=== PATIENT | male | born 1935 | race Caucasian/White ===

== ENCOUNTER 2016-10-19 12:21 | Outpatient (CLI) ==
[2016-10-19 12:56] LABS: BILIRUBIN,URINE Negative (NEGATIVE); KETONES,URINE Negative (NEGATIVE); LEUKOCYTE ESTERASE ,URINE Negative (NEGATIVE); NITRITE,URINE Negative (NEGATIVE); PROTEIN,URINE 1+ (NEGATIVE); URINE, BLOOD Negative (NEGATIVE)
[2016-10-19 13:04] LABS: ADD URINE MICROSCOPIC YES
== END 2016-10-19 12:22 | disposition home or self-care (01) ==
LOC: LAB 12:21
PROVIDERS: ATTEND Internal Medicine
DX: N39.0 Urinary tract infection, site not specified (principal)
CPT/HCPCS: 81001

== ENCOUNTER 2016-10-19 14:19 | Outpatient (CLI) | END 2016-10-19 14:20 | disposition home or self-care (01) | LOC: AMBL 14:19 | PROVIDERS: ATTEND Internal Medicine | DX: R41.82 Altered mental status, unspecified (principal); Z95.0 Presence of cardiac pacemaker; G30.9 Alzheimer's disease, unspecified; F02.80 Dementia in other diseases classified elsewhere, unspecified severity, without behavioral disturbance, psychotic disturbance, mood disturbance, and anxiety ==

== ENCOUNTER 2016-11-02 16:06 | Inpatient (IN) | payer OTHER ==
[2016-11-02] MEDS ORDERED: ULTRAM PO PRN (17:08)
[2016-11-02 17:16] LABS: ABG BASE EXCESS 1 (-2.0-2.0); ABG HCO3 24.9 (22.0-26.0); ABG TCO2 26 (22.0-28.0)
[2016-11-02 17:16] LABS: BASOPHILS % (AUTO) 0.2 % (0.0-3.0); EOSINOPHILS # (AUTO) 0.1 K/ul (0.0-0.7); EOSINOPHILS % (AUTO) 2.8 % (0.0-7.0); HEMATOCRIT 41.7 % (42.0-52.0); IMMATURE GRANULOCYTE % (AUTO) 0.4 % (0.0-5.0); LYMPHOCYTES # (AUTO) 1.1 K/uL (0.60-3.4); LYMPHOCYTES % (AUTO) 21.3 (10.0-50.0); MEAN CORPUSCULAR HEMOGLOBIN 32.9 pg (27.0-31.0); MEAN CORPUSCULAR HGB CONC 33.6 (31.8-35.4); MEAN CORPUSCULAR VOLUME 97.9 fl (80.0-94.0); MONOCYTES # (AUTO) 0.6 K/uL (0.4-2.0); MONOCYTES % (AUTO) 12.7 (0-10); NEUTROPHILS # (AUTO) 3.2 K/ul (2.0-6.9); NEUTROPHILS % (AUTO) 62.6; PLATELET COUNT 176 10^3/uL (140-440); RED BLOOD COUNT 4.26 10^6/ul (4.70-6.10); WHITE BLOOD COUNT 5.03 K/ul (4.2-10.2)
[2016-11-02 17:57] LABS: ALBUMIN 4.1 g/dL (3.4-5.0); ALBUMIN/GLOBULIN RATIO 1.17; ANION GAP 14.2; BILIRUBIN,TOTAL 0.56 mg/dL (0.00-1.20); BUN/CREATININE RATIO 25.58; CALCIUM 9.9 mg/dL (8.2-10.2); CREATININE 0.86 mg/dL (0.60-1.10); POTASSIUM 4.2 mmol/L (3.5-5.1); TOTAL PROTEIN 7.6 g/dL (5.8-8.1)
[2016-11-02 18:05] VITALS: BMI 19.1
[2016-11-02] MEDS: DEXTROSE 5%-1/2NS IV SOLUTION 1,000 ML IV SCH (18:32)
[2016-11-02] MEDS: ROCEPHIN 1 GM in SODIUM CHLORIDE 50 ML IV SCH (18:37)
[2016-11-02] MEDS: FAMVIR PO SCH ×2 (18:39→21:17)
[2016-11-02] MEDS: SOLU-CORTEF 100 MG IVP SCH (19:16)
[2016-11-02] MEDS ORDERED: VITAMIN C ONE (20:59)
[2016-11-02] MEDS ORDERED: ASCORBIC ACID 250 MG PO SCH (21:00)
[2016-11-02] MEDS: DESYREL PO SCH (21:17)
[2016-11-03] MEDS: SOLU-CORTEF 100 MG IVP SCH ×5 (00:45→23:04)
[2016-11-03 05:09] LABS: HEMATOCRIT 36.3 % (42.0-52.0); HEMOGLOBIN 12.1 g/dl (14.0-18.0); IMMATURE GRANULOCYTE % (AUTO) 0.8 % (0.0-5.0); LYMPHOCYTES # (AUTO) 0.5 K/uL (0.60-3.4); LYMPHOCYTES % (AUTO) 12.7 (10.0-50.0); MEAN CORPUSCULAR HEMOGLOBIN 32.4 pg (27.0-31.0); MEAN CORPUSCULAR HGB CONC 33.3 (31.8-35.4); MEAN CORPUSCULAR VOLUME 97.1 fl (80.0-94.0); MONOCYTES # (AUTO) 0.1 K/uL (0.4-2.0); MONOCYTES % (AUTO) 2.7 (0-10); NEUTROPHILS # (AUTO) 3.1 K/ul (2.0-6.9); NEUTROPHILS % (AUTO) 83.8; PLATELET COUNT 161 10^3/uL (140-440); RED BLOOD COUNT 3.74 10^6/ul (4.70-6.10)
[2016-11-03 05:20] LABS: ALBUMIN 3.6 g/dL (3.4-5.0); ALBUMIN/GLOBULIN RATIO 1.16; ANION GAP 13.4; BILIRUBIN,TOTAL 0.44 mg/dL (0.00-1.20); BUN/CREATININE RATIO 23.25; CALCIUM 9.4 mg/dL (8.2-10.2); CREATININE 0.86 mg/dL (0.60-1.10); POTASSIUM 4.4 mmol/L (3.5-5.1); TOTAL PROTEIN 6.7 g/dL (5.8-8.1)
[2016-11-03] MEDS: DEXTROSE 5%-1/2NS IV SOLUTION 1,000 ML IV SCH ×3 (06:29→18:52)
--- NOTE | 2016-11-03 07:03 | DI ---
EXAM: Chest two views HISTORY: Cough COMPARISON: None TECHNIQUE: Two views of the chest were performed FINDINGS: There is left-sided cardiac pacer. The lungs are clear. There is no pleural effusion or pneumothorax. The heart is normal in size. The mediastinal contour is normal, noting atherosclero sis. There are advanced degenerative changes in the shoulders. There is a severe compression deform ity near the thoracolumbar junction, age indeterminate. IMPRESSION: 1. No acute cardiopulmonary process. 2. Severe compression deformity near the thoracolumbar junction, age indeterminate. Report faxed at time of dictation.
[2016-11-03] MEDS: VITAMIN C PO SCH (09:27)
[2016-11-03] MEDS: ROCEPHIN 1 GM in SODIUM CHLORIDE 50 ML IV SCH (09:27)
[2016-11-03] MEDS: FAMVIR PO SCH ×2 (09:27→20:30)
[2016-11-03] MEDS: FLOMAX PO SCH (09:28)
--- NOTE | 2016-11-03 14:18 | HP ---
DATE OF SERVICE: 11/02/16 REASON FOR HOSPITALIZATION/HISTORY OF PRESENT ILLNESS: This is a 81-year-old male who presented with right cervical area eruption times 24 hours. Right shoulder back rash, reddened confluent rash with burning - no real pain. No symptoms of CHF. The patient complains of cough, congestion times four days with yellow sputum. No appetite times two days. The patient was seen at [facility]. REVIEW OF SYSTEMS: CONSTITUTIONAL: Fatigue. No fever. HEENT: Sinus drainage and sneezing. No sore throat. RESPIRATORY: Cough. No hemoptysis. CARDIOVASCULAR: Mild shortness of breath. No atypical chest pain for coronary artery disease. No angina, CHF symptoms, palpitations. GASTROINTESTINAL: No melena or abdominal pain. No GERD. GENITOURINARY: No hematuria, no prostatism, no polyuria. CORRECTIONS NURSE: No blackout, no dizziness, no headache, no double vision. MUSCULOSKELETAL: Osteoarthritic pain. ENDOCRINE: Weight loss. SKIN: Rash present. PSYCHIATRIC: Anxious. Confused but alert. No depression, no suicidal thoughts, no homicidal thoughts. PAST MEDICAL/SURGICAL HISTORY: 1. Tonsillectomy 2. Pacemaker 09/23 3. Hip 09/23 4. Dementia 5. History of seizures from bradyarrhythmias,ended up with pacemaker SOCIAL HISTORY: The patient is . Retired. Nonsmoker. No alcohol use. No illicit drug use. FAMILY HISTORY: Father is . Mother is . One brother; two sisters. MEDICATIONS: (Home) 1. Tamsulosin (Flomax) 0.4 mg p.o. daily 2. Alprazolam (Xanax) 0.5 mg p.o. b.i.d p.r.n. 3. Tramadol 50 mg p.o. b.i.d. p.r.n. 4. Trazodone 50 mg p.o. bedtime 5. Ascorbic Acid 250 mg p.o. b.i.d. ALLERGIES: NKDA PHYSICAL EXAMINATION: V/S: Pulse 76, BP 130/64, temperature 98.2, 02 sat 97%. GENERAL APPEARANCE: Oriented to person. HEENT: Normal. Skin is dry. NECK: No JVP, no bruits. Right cervical rash, supraclavicular area rash. RESPIRATORY: Lungs have decreased breath sounds but clear. Kyphosis. CARDIOVASCULAR: S1, S2, no S3, no murmurs. No cyanosis, clubbing. No ascites. GI/ABDOMEN: No tenderness. Bowel sounds are active. EXTREMITIES: No edema, pulses +1, equal. CORRECTIONS NURSE: Deep tendon reflexes, sensory, motor and gait all normal. RECTAL/PROSTATE: Refused. ASSESSMENT: 1. Acute Bronchitis/dehydration/Herpes Zoster (right neck cervical area, upper rash) 2. Mental confusion worsening 3. Pacemaker 4. Insomnia 5. Left hip fracture 09/23 6. Anxiety 7. Alzheimer's dementia 8. BPH 9. Anemia 10. Vitamin D deficiency 11. COPD 12. Generalized osteoarthritis PLAN: 1. 1000 cc D5 1/2 NS q.12hr 2. Famvir 500 mg p.o. now and b.i.d. 3. Solu-Cortef 100 mg IV q.6hr 4. ABG 5. Oxygen 2L/cannula/min 6. Rocephin 1 gm Iv q.24hr 7. Sputum for C & S 8. CBC, CMP today and daily 9. T4, TSH today 10. Chest x-ray and EKG today 11. Continue home medications 12. Fall precautions TIME SPENT: More than 70 minutes. MTDD
[2016-11-03] MEDS: DESYREL PO SCH (20:30)
[2016-11-03] MEDS: XANAX PO PRN (20:31)
[2016-11-04] MEDS: SOLU-CORTEF 100 MG IVP SCH (05:05)
[2016-11-04 05:50] LABS: BASOPHILS % (AUTO) 0.1 % (0.0-3.0); HEMATOCRIT 34.6 % (42.0-52.0); HEMOGLOBIN 11.9 g/dl (14.0-18.0); IMMATURE GRANULOCYTE % (AUTO) 0.5 % (0.0-5.0); LYMPHOCYTES # (AUTO) 0.6 K/uL (0.60-3.4); LYMPHOCYTES % (AUTO) 6.8 (10.0-50.0); MEAN CORPUSCULAR HEMOGLOBIN 32.6 pg (27.0-31.0); MEAN CORPUSCULAR HGB CONC 34.4 (31.8-35.4); MEAN CORPUSCULAR VOLUME 94.8 fl (80.0-94.0); MONOCYTES # (AUTO) 0.4 K/uL (0.4-2.0); MONOCYTES % (AUTO) 3.7 (0-10); NEUTROPHILS # (AUTO) 8.4 K/ul (2.0-6.9); NEUTROPHILS % (AUTO) 88.9; PLATELET COUNT 167 10^3/uL (140-440); RED BLOOD COUNT 3.65 10^6/ul (4.70-6.10); WHITE BLOOD COUNT 9.46 K/ul (4.2-10.2)
[2016-11-04 06:08] LABS: ALBUMIN 3.4 g/dL (3.4-5.0); ALBUMIN/GLOBULIN RATIO 1.13; ANION GAP 10.7; BILIRUBIN,TOTAL 0.3 mg/dL (0.00-1.20); BUN/CREATININE RATIO 21.25; CREATININE 0.8 mg/dL (0.60-1.10); POTASSIUM 3.7 mmol/L (3.5-5.1); TOTAL PROTEIN 6.4 g/dL (5.8-8.1)
[2016-11-04] MEDS: DEXTROSE 5%-1/2NS IV SOLUTION 1,000 ML IV SCH (06:58)
[2016-11-04] MEDS: ROCEPHIN 1 GM in SODIUM CHLORIDE 50 ML IV SCH (09:19)
[2016-11-04] MEDS: FLOMAX PO SCH (09:19)
[2016-11-04] MEDS: FAMVIR PO SCH ×2 (09:19→20:11)
[2016-11-04] MEDS: VITAMIN C PO SCH (09:19)
[2016-11-04] MEDS: XANAX PO PRN ×2 (15:00→20:11)
[2016-11-04] MEDS: PREDNISONE PO SCH (16:52)
[2016-11-04] MEDS: DESYREL PO SCH (20:12)
[2016-11-05 07:15] LABS: BASOPHILS % (AUTO) 0.2 % (0.0-3.0); HEMATOCRIT 34.2 % (42.0-52.0); HEMOGLOBIN 11.7 g/dl (14.0-18.0); IMMATURE GRANULOCYTE % (AUTO) 0.8 % (0.0-5.0); LYMPHOCYTES # (AUTO) 1.3 K/uL (0.60-3.4); LYMPHOCYTES % (AUTO) 20.4 (10.0-50.0); MEAN CORPUSCULAR HEMOGLOBIN 32.9 pg (27.0-31.0); MEAN CORPUSCULAR HGB CONC 34.2 (31.8-35.4); MEAN CORPUSCULAR VOLUME 96.1 fl (80.0-94.0); MONOCYTES # (AUTO) 0.5 K/uL (0.4-2.0); MONOCYTES % (AUTO) 7.9 (0-10); NEUTROPHILS # (AUTO) 4.5 K/ul (2.0-6.9); NEUTROPHILS % (AUTO) 70.7; PLATELET COUNT 149 10^3/uL (140-440); RED BLOOD COUNT 3.56 10^6/ul (4.70-6.10); WHITE BLOOD COUNT 6.31 K/ul (4.2-10.2)
[2016-11-05 07:34] LABS: ALBUMIN 3.3 g/dL (3.4-5.0); ALBUMIN/GLOBULIN RATIO 1.18; ANION GAP 9.4; BILIRUBIN,TOTAL 0.32 mg/dL (0.00-1.20); BUN/CREATININE RATIO 27.39; CALCIUM 9.1 mg/dL (8.2-10.2); CREATININE 0.73 mg/dL (0.60-1.10); POTASSIUM 3.4 mmol/L (3.5-5.1); TOTAL PROTEIN 6.1 g/dL (5.8-8.1)
[2016-11-05] MEDS: FLOMAX PO SCH (09:35)
[2016-11-05] MEDS: PREDNISONE PO SCH (09:35)
[2016-11-05] MEDS: FAMVIR PO SCH (09:35)
[2016-11-05] MEDS: VITAMIN C PO SCH (09:36)
[2016-11-05] MEDS: ROCEPHIN 1 GM in SODIUM CHLORIDE 50 ML IV SCH (09:36)
[2016-11-05] MEDS: XANAX PO PRN (11:00)
--- NOTE | 2016-11-05 11:07 | PCM.PROG ---
Attending Provider: ATTENDING PROVIDER: Dr. ANGELITA RINCON DATE OF SERVICE: 11/05/16 SUBJECTIVE: This 81 year old WHITE/ M was hospitalized 11/02/16. The patient is hospitalized with acute bronchitis, dehydration and herpes zoster. His condition has improved remarkably. The patient is still confused but pleasant. Appetite is improved. Hydration status improved. The patient doesn't complain of any pain. No fever no chills. Cough is much more controlled. REVIEW OF SYSTEMS: CONSTITUTIONAL: No night sweats. No fatigue, malaise, lethargy. No fever or chills. HEENT: Eyes: No visual changes. No eye pain. No eye discharge. ENT: No runny nose. No epistaxis. No sinus pain. No odynophagia. No congestion. RESPIRATORY: Less cough, no congestion. No hemoptysis. CARDIOVASCULAR: No angina symptoms. No CHF symptoms. No atypical chest pain for CAD. No palpitations. No shortness of breath. GASTROINTESTINAL: Improved appetite. No abdominal pain. No nausea or vomiting. No diarrhea or constipation. No hematemesis. No hematochezia. GENITOURINARY: No urgency. No frequency. No dysuria. No hematuria. No obstructive symptoms. No discharge. No pain. No significant abnormal bleeding. MUSCULOSKELETAL: No musculoskeletal pain; no joint swelling. NEUROLOGICAL: Awake, alert, confused. No headache. No neck pain. No syncope. No seizures. No dizziness. PSYCHIATRIC: Not anxious. No depression. No suicidal thoughts. No homicidal thoughts. SKIN: Vesicular eruptions noted right supraclavicular and right suprascapular area. ENDOCRINE: No unexplained weight loss. No weight gain. HEMATOLOGIC/LYMPHATIC: No anemia. No purpura. No petechiae. No prolonged or excessive bleeding. No palpable lymph nodes. PHYSICAL EXAMINATION: GENERAL: The patient is awake, alert, confused lying in bed in no distress. VITAL SIGNS: Temperature 97.4 F, Pulse 66, Respiratory Rate 16, BP 126/84, Pulse Ox 98% HEENT: Head normocephalic, atraumatic. Eyes: Extraocular muscles are intact. Pupils are equal, round and reactive to light and accommodation. Ears: No lesions. Nose appeared normal. Throat: No exudate or erythema. NECK: Supple. No JVD, no carotid bruit. No lymphadenopathy or thyromegaly. LUNGS: Clear to auscultation. Percussion note normal. Chest symmetrical. HEART: S1, S2, no S3. No murmurs. No cyanosis or clubbing. No ascites. Pulses: Dorsalis pedis and posterior tibial pulses +1 to +2 both sides. ABDOMEN: Soft. Non-tender. Bowel sounds active. No CVA tenderness. No mass felt. EXTREMITIES: No edema. Full range of motion of all extremities, equal. Vesicular confluent eruptions noted right supraclavicular and right suprascapular area. No crusting yet. NEUROLOGIC: No focal deficit. Cranial nerves II through XII are grossly intact. No headache, no double vision or headache. SKIN: Not dry. Intact. Turgor-normal. As above. LYMPHATIC: No palpable lymph nodes/no lymphedema. MUSCULOSKELETAL: Normal joints with no swelling. Muscle tone is normal. LAB REVIEW: 11/05/16 06:45 11/05/16 06:45 11/05/16 06:45: WBC 6.31, RBC 3.56 L, Hgb 11.7 L, Hct 34.2 L, MCV 96.1 H, MCH 32.9 H, MCHC 34.2, RDW Coeff of Chepe 12.4, Plt Count 149, Immature Gran % (Auto) 0.8, Neut % (Auto) 70.7, Lymph % (Auto) 20.4, Chase % (Auto) 7.9, Eos % (Auto) 0.0, Baso % (Auto) 0.2, Immature Gran # (Auto) 0.1, Neut # 4.5, Lymph # 1.3, Chase # 0.5, Eos # 0.0, Baso # 0.0, Sodium 140, Potassium 3.4 L, Chloride 107, Carbon Dioxide 27, Anion Gap 9.4, BUN 20 H, Creatinine 0.73, Estimated GFR (MDRD ) 103.00, BUN/Creatinine Ratio 27.39, Glucose 90, Calcium 9.1, Total Bilirubin 0.32, AST 30, ALT 28, Alkaline Phosphatase 88, Total Protein 6.1, Albumin 3.3 L , Globulin 2.8, Albumin/Globulin Ratio 1.18 ASSESSMENT: 1. Acute bronchitis 2. Dehydration 3. Herpes Zoster, right neck, cervical area upper rash PLAN: 1. Discharge home 2. Prescription for Famvir for 7 more days 500 b.i.d. 3. Prescription for Prednisone 10 mg one daily times 3 days 4. Prescription for Keflex 500 mg b.i.d. times [address] scan of thoracic spine to evaluate compression fracture as seen on chest x-ray Plan and coordination of the patient's care discussed in the presence of Sandblast Carver and nurse. EDUCATION: The patient's daughter has been explained about the infectivity period. CONDITION: Stable SCRIBED BY: Zeb MORAN scribed while in presence of service performed by Dr. ANGELITA RINCON on 11/05/16 ([id number])
--- NOTE | 2016-11-05 13:06 | CM.DICTOOL ---
ADMISSION: 11/02/16 16:06 DISCHARGE: 11/05/16 DATE OF SERVICE: 11/05/16 FINAL DIAGNOSIS ACUTE BRONCHITIS DEHYDRATION SHINGLES ALZHEIMERS TYPE DEMENTIA (DAUGHTER DECLINES PHARMACOLOGICAL INTERVENTION) SEIZURE DISORDER (LAST SEIZURE 2014) BPH CAD AND HISTORY OF [place] ANXIETY COMPRESSION FRACTURE-THORACOLUMBAR JUNCTION PACEMAKER INSERTION LEFT HIP FRACTURE LAST VITALS Temp Pulse Resp BP Pulse Ox 97.4 F L 66 16 126/84 98 11/05/16 05:59 11/05/16 05:59 11/05/16 08:00 11/05/16 05:59 11/05/16 05:59 ACTIVE MEDICATIONS Alprazolam (Xanax) 0.5 mg PO BID PRN PRN Reason: Anxiety Last Admin: 11/04/16 20:11 Dose: 0.5 mg Ascorbic Acid (Vitamin C) 250 mg PO DAILY [facility] Last Admin: 11/04/16 09:19 Dose: 250 mg Famciclovir (Famvir) 500 mg PO BID [facility] Last Admin: 11/04/16 20:11 Dose: 500 mg Prednisone (Prednisone) 10 mg PO DAILYWM [facility] Last Admin: 11/04/16 16:52 Dose: 10 mg Tamsulosin HCl (Flomax) 0.4 mg PO DAILY [facility] Last Admin: 11/04/16 09:19 Dose: 0.4 mg Tramadol HCl (Ultram) 50 mg PO BID PRN PRN Reason: pain Trazodone HCl (Desyrel) 50 mg PO BEDTIME [facility] Last Admin: 11/04/16 20:12 Dose: 50 mg denotes medications initiated during this hospitalization that will be continued after discharge ALLERGIES dexamethasone [From Decadron] Adverse Reaction (Severe, Verified 11/02/16 16:55) stopped breathing NEW PRESCRIPTIONS: FAMVIR 500 MG, TAKE ONE TABLET BY MOUTH TWICE DAILY FOR 7 (SEVEN) DAYS PREDNISONE 10 MG, TAKE ONE TABLET BY MOUTH DAILY FOR 3 (THREE) DAYS WITH FOOD KEFLEX 500 MG, TAKE ONE TABLET BY MOUTH TWICE DAILY FOR 5 (FIVE) DAYS SMOKING: NONSMOKER DISEASE SPECIFIC EDUCATION: THE PATIENT'S DAUGHTER HAS BEEN PROVIDED TEACHING REGARDING: SHINGLES BRONCHITIS DEHYDRATION ALZHEIMERS HOME MEDICATIONS NEW PRESCRIPTIONS FOLLOW UP LAB REVIEW: 11/05/16 06:45 11/05/16 06:45 11/05/16 06:45: WBC 6.31, RBC 3.56 L, Hgb 11.7 L, Hct 34.2 L, MCV 96.1 H, MCH 32.9 H, MCHC 34.2, RDW Coeff of Chepe 12.4, Plt Count 149, Immature Gran % (Auto) 0.8, Neut % (Auto) 70.7, Lymph % (Auto) 20.4, [place] % (Auto) 7.9, Eos % (Auto) 0.0, Baso % (Auto) 0.2, Immature Gran # (Auto) 0.1, Neut # 4.5, Lymph # 1.3, [place] # 0.5, Eos # 0.0, Baso # 0.0, Sodium 140, Potassium 3.4 L, Chloride 107, Carbon Dioxide 27, Anion Gap 9.4, BUN 20 H, Creatinine 0.73, Estimated GFR (MDRD ) 103.00, BUN/Creatinine Ratio 27.39, Glucose 90, Calcium 9.1, Total Bilirubin 0.32, AST 30, ALT 28, Alkaline Phosphatase 88, Total Protein 6.1, Albumin 3.3 L , Globulin 2.8, Albumin/Globulin Ratio 1.18 PLAN: DISCHARGE HOME TODAY RETURN TO SEE DR. RINCON IN 5-7 DAYS. PLEASE PHONE THE OFFICE TO SCHEDULE YOUR APPOINTMENT ([phone]) RESUME YOUR HOME MEDICATIONS PER LIST PROVIDED BY THE NURSING STAFF NEW PRESCRIPTIONS: FAMVIR 500 MG, TAKE ONE TABLET BY MOUTH TWICE DAILY FOR 7 (SEVEN) DAYS PREDNISONE 10 MG, TAKE ONE TABLET BY MOUTH DAILY FOR 3 (THREE) DAYS WITH FOOD KEFLEX 500 MG, TAKE ONE TABLET BY MOUTH TWICE DAILY FOR 5 (FIVE) DAYS ACTIVITY: GET PLENTY OF REST AT HOME STAY WELL HYDRATED DIET: TOLERATED SUMMARY: THE PATIENT IS ALERT BUT HAS PROGRESSIVE DEMENTIA. HIS DAUGHTER HAS ELECTED TO DECLINE ANY MEDICATIONS MAY TREAT THE DISEASE. SHE IS THE PRIMARY CAREGIVER FOR MR. CORCORAN IN HER HOME. HE IS COMPLETELY DEPENDENT ON OTHERS FOR ALL ADL' S. HIS ABILITY LEVEL DEPENDS ON HIS LEVEL OF ORIENTATION. SOME DAYS HE IS ABLE TO BEAR WEIGHT AND ASSIST WITH TRANSFERS FROM BED TO CHAIR. HOWEVER ON DAYS WHEN HE IS NOT ORIENTED, HE IS COMPLETELY UNABLE TO BEAR WEIGHT AND REQUIRES COMPLETE LIFTS FOR TRANSFERS. HE IS INCONTINENT BOTH BOWEL AND BLADDER. THE PATIENT'S SKIN TURGOR IS IMPAIRED DUE TO A SHINGLES OUTBREAK. HE HAS RED RAISED RASH AND VESSICLES TO HIS RIGHT NECK, RIGHT SHOULDER AND RIGHTCHEST/MID- CHEST. OTHERWISE, MR. CORCORAN DOES NOT HAVE ANY DECUBITUS ULCERS PRESENT ON DISCHARGE. ANGELITA RINCON M.D.
--- NOTE | 2016-11-05 13:51 | CT ---
EXAM: CT scan of the thoracic spine without contrast HISTORY: Degenerative spine changes. TECHNIQUE: Imaging of the thoracic spine was performed without contrast. Sagittal and coronal urban nstructions and axial images were provided for interpretation. FINDINGS: There is severe compression deformity of the T11 vertebral body level. There is approxim ately 80% collapse of the T11 without significant retropulsion of the posterior cortex into the spin al canal. The pedicles of T11 appear intact. The articular facets of T11 are intact. The paraspin al soft tissues are normal. No definite acute fracture lines are seen. No other fractures are seen within the thoracic spine. There is mild increased thoracic kyphosis. IMPRESSION: Chronic appearing compression deformity of the T11 vertebral body. No definite acute compression fractures are seen.
[2016-11-05 14:02] VITALS: BP 144/70; TEMP 98.8
--- NOTE | 2016-11-09 10:59 | PN ---
DATE OF SERVICE: 11/03/16 SUBJECTIVE: 81-year-old white male hospitalized with bronchitis and also dehydration with vesicular eruptions with rash on the right supraclavicular area and right posterior suprascapular area. The patient has dementia. His MMSE score is 6/30. He is disoriented to place and time. REVIEW OF SYSTEMS: CONSTITUTIONAL: No night sweats. No fatigue, malaise, lethargy. No fever or chills. HEENT: Eyes: No visual changes. No eye pain. No eye discharge. ENT: No runny nose. No epistaxis. No sinus pain. No sore throat. No odynophagia. No congestion. RESPIRATORY: Mild cough, no congestion. No hemoptysis. CARDIOVASCULAR: The patient denies any chest pain. No PND, no orthopnea. No chest pain, no shoulder pain. No angina symptoms. No CHF symptoms. No palpitations. No shortness of breath. GASTROINTESTINAL: No abdominal pain. No nausea or vomiting. No diarrhea or constipation. No hematemesis. No hematochezia. GENITOURINARY: No urgency. No frequency. No dysuria. No hematuria. No obstructive symptoms. No discharge. No pain. No significant abnormal bleeding. MUSCULOSKELETAL: No musculoskeletal pain; no joint swelling. NEUROLOGICAL: No headache. No neck pain. No syncope. No seizures. No dizziness. PSYCHIATRIC: Not anxious. No depression. No suicidal thoughts. No homicidal thoughts. SKIN: Vesicular eruptions with rash on the right supraclavicular area and right posterior suprascapular area. ENDOCRINE: No unexplained weight loss. No weight gain. HEMATOLOGIC/LYMPHATIC: No anemia. No purpura. No petechiae. No prolonged or excessive bleeding. No palpable lymph nodes. PHYSICAL EXAMINATION: GENERAL: The patient is alert, confused. VITAL SIGNS: Temperature 98.4, pulse 80, respiratory rate 16, BP 128/82. Pulse ox 97%. HEENT: Head normocephalic, atraumatic. Eyes: Extraocular muscles are intact. Pupils are equal, round and reactive to light and accommodation. Ears: No lesions. Nose appeared normal. Throat: No exudate or erythema. NECK: Supple. No JVD, no carotid bruit. No lymphadenopathy or thyromegaly. LUNGS: Decreased breath sounds but clear to auscultation. Percussion note normal. Chest symmetrical. HEART: S1, S2, no S3. No murmurs. No cyanosis or clubbing. No ascites. Pulses: Dorsalis pedis and posterior tibial pulses +1 to +2 both sides. ABDOMEN: Soft. Nontender. Bowel sounds active. No CVA tenderness. No mass felt. EXTREMITIES: No edema. Full range of motion of all extremities, equal. NEUROLOGIC: No focal deficit. Cranial nerves II through XII are grossly intact. No headache, no double vision or headache. SKIN: As above. LYMPHATIC: No palpable lymph nodes/no lymphedema. MUSCULOSKELETAL: Normal joints with no swelling. Muscle tone is normal. LABS: Hemoglobin 12.1, hematocrit 36, WBC 3,700, normal differential. Creatinine 0.8, BUN 20, potassium 4.4, glucose 177. ASSESSMENT: 1. BRONCHITIS. 2. ACUTE DEHYDRATION. 3. HERPES ZOSTER. 4. DEMENTIA. 5. PACEMAKER. PLAN: 1. Continue Famvir. 2. Continue Rocephin. 3. Continue Steroids. 4. Hydration status has improved. CONDITION: Stable. Appetite has improved and the patient says he is feeling better and has no pain. TIME SPENT: More than 30 minutes. Plan and coordination of the patient's care discussed in the presence of nurse. FAY
--- NOTE | 2016-11-09 11:09 | PN ---
DATE OF SERVICE: 11/04/16 SUBJECTIVE: 81-year-old white male hospitalized with acute bronchitis, dehydration and herpes zoster. The patient's condition has improved. He is looking a lot better , smiling. Appetite is good according to him. REVIEW OF SYSTEMS: CONSTITUTIONAL: No night sweats. No fatigue, malaise, lethargy. No fever or chills. HEENT: Eyes: No visual changes. No eye pain. No eye discharge. ENT: No runny nose. No epistaxis. No sinus pain. No sore throat. No odynophagia. No congestion. RESPIRATORY: No cough, no congestion. No hemoptysis. CARDIOVASCULAR: No angina symptoms. No CHF symptoms. No atypical chest pain for CAD. No palpitations. No shortness of breath. No PND, no orthopnea. No palpitations. GASTROINTESTINAL: Appetite has improved. No abdominal pain. No nausea or vomiting. No diarrhea or constipation. No hematemesis. No hematochezia. GENITOURINARY: No urgency. No frequency. No dysuria. No hematuria. No obstructive symptoms. No discharge. No pain. No significant abnormal bleeding. MUSCULOSKELETAL: No musculoskeletal pain; no joint swelling. NEUROLOGICAL: No headache. No neck pain. No syncope. No seizures. No dizziness. PSYCHIATRIC: Not anxious. No depression. No suicidal thoughts. No homicidal thoughts. SKIN: Rash noted on right supraclavicular and right suprascapular area, vesicular type with some blistering. ENDOCRINE: No unexplained weight loss. No weight gain. HEMATOLOGIC/LYMPHATIC: No anemia. No purpura. No petechiae. No prolonged or excessive bleeding. No palpable lymph nodes. PHYSICAL EXAMINATION: GENERAL: The patient is confused, alert. VITAL SIGNS: Temperature 97.5, pulse 65, respiratory rate 16, BP 160/90. Pulse ox 97%. HEENT: Head normocephalic, atraumatic. Eyes: Extraocular muscles are intact. Pupils are equal, round and reactive to light and accommodation. Ears: No lesions. Nose appeared normal. Throat: No exudate or erythema. NECK: Supple. No JVD, no carotid bruit. No lymphadenopathy or thyromegaly. LUNGS: Decreased breath sounds but clear to auscultation. Percussion note normal. Chest symmetrical. HEART: S1, S2, no S3. No murmurs. No cyanosis or clubbing. No ascites. Pulses: Dorsalis pedis and posterior tibial pulses +1 to +2 both sides. ABDOMEN: Soft. Nontender. Bowel sounds active. No CVA tenderness. No mass felt. EXTREMITIES: Rash noted on right supraclavicular and right suprascapular area , vesicular type with some blistering. No edema. Full range of motion of all extremities, equal. NEUROLOGIC: No focal deficit. Cranial nerves II through XII are grossly intact. No headache, no double vision or headache. SKIN: As above. LYMPHATIC: No palpable lymph nodes/no lymphedema. MUSCULOSKELETAL: Normal joints with no swelling. Muscle tone is normal. LABS: Hemoglobin 11.9, hematocrit 34, WBC 8,900, normal differential. Creatinine 0.8, BUN 17, potassium 3.7. ASSESSMENT: 1. ACUTE BRONCHITIS 2. DEHYDRATION 3. DEMENTIA 4. HERPES ZOSTER PLAN: 1. Continue Famvir 2. Continue Rocephin 3. Continue steroids 4. Continue IV fluids CONDITION: Stable TIME SPENT: More than 30 minutes. Plan and coordination of the patient's care discussed in the presence of nurse. FAY
--- NOTE | 2016-11-09 13:13 | DS ---
DATE OF SERVICE: 11/05/16 FINAL DIAGNOSIS: 1. ACUTE BRONCHITIS 2. DEHYDRATION 3. SHINGLES 4. ALZHEIMER'S TYPE DEMENTIA (DAUGHTER DECLINES PHARMACOLOGICAL INTERVENTION) 5. SEIZURE DISORDER (LAST SEIZURE 2014) 6. BPH 7. CAD AND HISTORY OF [place] 8. ANXIETY 9. COMPRESSION FRACTURE-THORACOLUMBAR JUNCTION 10. PACEMAKER INSERTION 11. LEFT HIP FRACTURE DISCHARGE INSTRUCTIONS: Followup appointment with Dr. Denise in 5 to 7 days. Please phone office to schedule your appointment. MEDICATIONS AT DISCHARGE: 1. Tamsulosin (Flomax) 0.4 mg p.o. daily 2. Alprazolam (Xanax) 0.5 mg p.o. b.i.d. p.r.n. 3. Tramadol 50 mg p.o. b.i.d. p.r.n. 4. Trazodone 50 mg p.o. bedtime 5. Ascorbic Acid (Vitamin C) 250 mg p.o. b.i.d. NEW PRESCRIPTIONS: 1. Famvir 500 mg take one tablet by mouth twice daily for 7 days 2. Prednisone 10 mg one tablet by mouth daily for 3 days with food 3. Keflex 500 mg take one tablet by mouth twice daily for 5 days DIET INSTRUCTIONS: As tolerated. ACTIVITY: Get plenty of rest at home. Stay well-hydrated. SMOKING: Nonsmoker DISEASE SPECIFIC EDUCATION: The patient's daughter has been provided teaching regarding: Shingles, bronchitis, dehydration, Alzheimer's, home medications, new prescriptions and followup. HOSPITAL COURSE: 81-year-old white male hospitalized through the office with acute bronchitis, dehydration and the patient had Herpes Zoster with some symptoms for 2 to 3 days prior to hospitalization. The patient, on the day of hospitalization, was taken to ER at [facility]. He was discharged on medication for Herpes Zoster. The daughter brought the patient to the office where he was found to have bronchitis type of symptoms and deterioration of mental status with poor skin turgor. The patient was given in the hospital, Rocephin IV, IV steroids administered along with Famvir for herpes zoster. The patient did not have any pain. Herpes Zoster eruptions are in the right supraclavicular and slight suprascapular areas. He has been able to tolerate them very well. The patient was discharged on Keflex, Famvir, Prednisone tablets. The patient also has known compression fracture on thoracolumbar junction. Daughter does not want anything to be done. The patient is physically not stable at the present time or even in the future. The patient had an MMSE done. His score was 4 out of 30. The patient has severe dementia. The daughter, family and the patient have declined any treatment. CONDITION AT TIME OF DISCHARGE: Stable. TIME SPENT: More than 60 minutes. MTDD
== END 2016-11-05 15:47 | disposition home or self-care (01) | DRG 202 ==
LOC: MEDSURG B 16:06
PROVIDERS: ADMIT Internal Medicine; ATTEND Internal Medicine
DX: J20.9 Acute bronchitis, unspecified (principal); S72.002A Fracture of unspecified part of neck of left femur, initial encounter for closed fracture; S22.089A Unspecified fracture of T11-T12 vertebra, initial encounter for closed fracture; E86.0 Dehydration; B02.9 Zoster without complications; G30.9 Alzheimer's disease, unspecified; I25.10 Atherosclerotic heart disease of native coronary artery without angina pectoris; F02.80 Dementia in other diseases classified elsewhere, unspecified severity, without behavioral disturbance, psychotic disturbance, mood disturbance, and anxiety; G40.909 Epilepsy, unspecified, not intractable, without status epilepticus; N40.0 Benign prostatic hyperplasia without lower urinary tract symptoms; F41.9 Anxiety disorder, unspecified; I25.2 Old myocardial infarction; Z95.0 Presence of cardiac pacemaker; Z79.899 Other long term (current) drug therapy
CPT/HCPCS: 36415; 80053; 82607; 82803; 83036; 84436; 84443; 85025; 93005; 93010

== ENCOUNTER 2017-02-22 11:42 | Emergency (ER) ==
[2017-02-22 11:47] VITALS: BP 130/80; TEMP 97.4; BMI 18.8
--- NOTE | 2017-02-22 12:04 | ED.PDOC ---
General ED Provider: Dr. YADI EAGLE JR Chief Complaint: Rash Stated Complaint: patient has a red rash area to back of neck. patient has a hx of shingles. patient also has a red area to naval[End]SINCE [id number] 78 20 97% 130/80 shingles/enlarged prst. pacemaker SZ. family notes weak and confused past week complained of right sided weakness increased confusion strong odor to urine, open site to right of umbnilicus dry open dry sites accross upper back at neck more to right of midlin[place] patches no vesicles family states vesicle at umbilcus no vesicles seen by family on back Time Seen by Physician: 12:04 Mode of Arrival: Wheelchair Information Source: Patient, Family Exam Limitations: No limitations Primary Care Provider: ANGELITA RINCON Nursing and Triage Documentation Reviewed and Agree: No Review of Systems - Review Of Systems Constitutional: Reports: Malaise, Weakness Eyes: Reports: Decreased acuity Ears, Nose, Mouth, Throat: Reports: No symptoms Respiratory: Reports: No symptoms Cardiac: Reports: Lightheadedness GI: Reports: No symptoms : Reports: Other (FOUL ODOR) Musculoskeletal: Reports: No symptoms Skin: Reports: Lesions (TO RIGHT SIDE OF UMBILICUS AND THREE PATCHES ON BACK OR NECK EXCORIATIOSN POSSIBLY DUE TO VIRAL EXANTHEM BUT NO VISIBLE VESICLES NOT TENDER NOT ACTIVELY ITCHING- FAMILY FEELS THIS IS ZOSTER) Neurological: Reports: Cognitive dysfunction, Weakness (RIGHT SIDE RESOLVED NO CHANGE IN AMBULATION, PATIENT DOES STIFFEN LEGS, FEW SECONDS OF COGWHEEL LIKE MOTION(NOT TYPICAL)) Endocrine: Denies: Unexplained weight gain Hematologic/Lymphatic: Reports: No symptoms (ON ENSURE) All Other Systems: Other Past Medical History - Past Medical History Endocrine: Reports: None Cardiovascular: Reports: None Respiratory: Reports: None Hematological: Reports: None Gastrointestinal: Reports: None Genitourinary: Reports: None Neuro/Psych: Reports: Seizure Musculoskeletal: Reports: None Cancer: Reports: None Other Pertinent Past Medical History: shingles/enlarged prostate - Surgical History General Surgical History: Reports: Pacemaker - Family History Family History: Reports: Unknown - Social History Smoking Status: Never smoker Hx Substance Use: No Alcohol Screening: Occasionally Physical Exam - Physical Exam Appearance: Ill-appearing Ill-appearing: Mild Pain Distress: Mild Eyes: MARIA LUISA, EOMI, Conjunctiva clear ENT: Nose normal, TMs [place] Neck: Supple Respiratory: Airway patent, Breath sounds clear Cardiovascular: RRR, Pulses normal GI/: Soft, Nontender Musculoskeletal: Normal strength (UNCOOPERATIVE, FULL rom BUT UNUSIAL MOTIONS) Skin: Warm, Dry, Normal color Neurological: Sensation intact, Motor intact, Reflexes intact, Cranial nerves intact, Alert, Oriented Interpretation - Radiology Interpretation Radiology Interpretation By: Radiologist Radiology Results: Negative Exam Interpreted: CT Scan (HEAD NON ACUTE) Physician Notification - Case Discussed Physician Notified: Dr Rincon- let family know he does not meet criteria for admission Time of Notification: 14:56 Critical Care Note - Critical Care Note Total Time (mins): 0 Course - Course Hematology/Chemistry: 02/22/17 12:20 02/22/17 12:20 Orders, Labs, Meds: Lab Review 02/22/17 02/22/17 12:20 14:35 WBC 5.91 RBC 4.41 L Hgb 14.6 Hct 43.0 MCV 97.5 H MCH 33.1 H MCHC 34.0 RDW Coeff of [place] 13.0 Plt Count 180 Immature Gran % (Auto) 0.5 Neut % (Auto) 67.6 Lymph % (Auto) 20.8 [place] % (Auto) 8.6 Eos % (Auto) 2.2 Baso % (Auto) 0.3 Immature Gran # (Auto) 0.0 Neut # 4.0 Lymph # 1.2 [place] # 0.5 Eos # 0.1 Baso # 0.0 Sodium 139 Potassium 4.2 Chloride 102 Carbon Dioxide 25 Anion Gap 16.2 BUN 23 H Creatinine 0.87 Estimated GFR (MDRD) 84.00 BUN/Creatinine Ratio 26.43 Glucose 151 H Calcium 9.8 Total Bilirubin 0.58 AST 39 H ALT 33 Alkaline Phosphatase 123 H Total Protein 7.8 Albumin 4.0 Globulin 3.8 Albumin/Globulin Ratio 1.05 Amylase 92 Lipase 64 Urine Color Yellow Urine Clarity Clear Urine pH 5.5 Ur Specific [place] 1.025 Urine Protein 1+ Urine Glucose (UA) Negative Urine Ketones Negative Urine Blood Trace-lysed Urine Nitrite Negative Urine Bilirubin Negative Urine Urobilinogen 0.2 Ur Leukocyte Esterase Negative Ur Squamous Epith Cells 2-5 Urine Mucus 1+ H. pylori IgG Antibody Negative Orders Category Date Time Status Ramos [CATHETER INSERTION AND CARE] Q8HR CARE 02/22/17 13:52 Active AMYLASE Stat LAB 02/22/17 12:20 Completed CBC W/ AUTO DIFF Stat LAB 02/22/17 12:20 Completed COMPREHENSIVE METABOLIC PANEL Stat LAB 02/22/17 12:20 Completed H. PYLORI SCREEN Stat LAB 02/22/17 12:20 Completed LIPASE Stat LAB 02/22/17 12:20 Completed URINALYSIS C & S IF INDICATED Stat LAB 02/22/17 14:35 Completed Lidocaine HCl [Uro-Jet] MEDS 02/22/17 14:30 Discontinued 10 ml [id number] .STK-MED ONE CT HEAD W/O CONTRAST Stat RADS 02/22/17 12:16 Completed Vital Signs: Temp Pulse Resp BP Pulse Ox 02/22/17 11:42 97.4 F L 78 20 130/80 97 Departure - Departure Time of Disposition: 15:49 Disposition: HOME SELF-CARE Discharge Problem: Rash, Confusion state, Weakness Instructions: Acute Rash (ED), Altered Mental Status (ED) Condition: Good Pt referred to PMD for follow-up: Yes Additional Instructions: Please follow-up with Dr. Rincon in 1-3 days. may begin famvir for rash if any blistering encourage oral fluids return if fever over 101.0 one sided weakness or worsening Prescriptions: Famciclovir [Famvir] 500 mg PO BID #14 tablet Allergies/Adverse Reactions: Allergies dexamethasone [From Decadron] Adverse Reaction (Severe, Verified 02/22/17 11:54) stopped breathing stopped breathing Home Medications: Ambulatory Orders Alprazolam [Xanax] 0.5 mg PO BID PRN 11/02/16 Tamsulosin HCl [Flomax] 0.4 mg PO DAILY 11/02/16 Tramadol HCl 50 mg PO BID PRN 11/02/16 Trazodone HCl 50 mg PO BEDTIME 11/02/16 Famciclovir [Famvir] 500 mg PO BID #14 tablet 02/22/17 Ferrous Sulfate Solution [Ferrous Sulfate] 5 ml PO TID PRN 02/22/17
[2017-02-22 12:28] LABS: BASOPHILS % (AUTO) 0.3 % (0.0-3.0); EOSINOPHILS # (AUTO) 0.1 K/ul (0.0-0.7); EOSINOPHILS % (AUTO) 2.2 % (0.0-7.0); HEMOGLOBIN 14.6 g/dl (14.0-18.0); IMMATURE GRANULOCYTE % (AUTO) 0.5 % (0.0-5.0); LYMPHOCYTES # (AUTO) 1.2 K/uL (0.60-3.4); LYMPHOCYTES % (AUTO) 20.8 (10.0-50.0); MEAN CORPUSCULAR HEMOGLOBIN 33.1 pg (27.0-31.0); MEAN CORPUSCULAR VOLUME 97.5 fl (80.0-94.0); MONOCYTES # (AUTO) 0.5 K/uL (0.4-2.0); MONOCYTES % (AUTO) 8.6 (0-10); NEUTROPHILS % (AUTO) 67.6; PLATELET COUNT 180 10^3/uL (140-440); RED BLOOD COUNT 4.41 10^6/ul (4.70-6.10); WHITE BLOOD COUNT 5.91 K/ul (4.2-10.2)
[2017-02-22 12:38] LABS: H. PYLORI ANTIBODY NEGATIVE (NEGATIVE); H.PYLORI INTERNAL QC INTERNAL QC VALID
[2017-02-22 12:45] LABS: ALBUMIN/GLOBULIN RATIO 1.05; ANION GAP 16.2; BILIRUBIN,TOTAL 0.58 mg/dL (0.00-1.20); BUN/CREATININE RATIO 26.43; CALCIUM 9.8 mg/dL (8.2-10.2); CREATININE 0.87 mg/dL (0.60-1.10); POTASSIUM 4.2 mmol/L (3.5-5.1); TOTAL PROTEIN 7.8 g/dL (5.8-8.1)
--- NOTE | 2017-02-22 13:27 | CT ---
EXAM: CT head without contrast. HISTORY: Unstable gait. Right-sided weakness. Confusion. COMPARISON: 06/18/2016. TECHNIQUE: Multiple axial images of the brain were obtained from the skull base through the vertex without intravenous contrast. FINDINGS: There is no intracranial hemorrhage or extraaxial collection. The kaur-white differentia tion is maintained without evidence for acute large vascular territory infarction. There are areas of periventricular and subcortical white matter low attenuation. The cortical sulci and cerebral ve ntricles are enlarged with stable ventricular size since the prior study. The basal cisterns are we ll visualized. There is no hydrocephalus, mass effect, or midline shift. The paranasal sinuses and mastoid air cells are clear. The calvarium is intact. Atherosclerotic calcifications are present. Since the prior study, there has been no significant interval change. IMPRESSION: 1. No acute intracranial abnormality. 2. Chronic small vessel ischemic changes and atrophy. 3. Stable ventriculomegaly.
[2017-02-22] MEDS ORDERED: URO-JET MUCOUSMEMB ONE (14:30)
[2017-02-22 14:44] LABS: BILIRUBIN,URINE Negative (NEGATIVE); KETONES,URINE Negative (NEGATIVE); LEUKOCYTE ESTERASE ,URINE Negative (NEGATIVE); NITRITE,URINE Negative (NEGATIVE); PH,URINE 5.5 (5-9); PROTEIN,URINE 1+ (NEGATIVE); URINE, BLOOD Trace-lysed (NEGATIVE)
[2017-02-22 14:47] LABS: ADD URINE MICROSCOPIC YES
== END 2017-02-22 16:06 | disposition home or self-care (01) ==
LOC: ED 11:42
DX: R21 Rash and other nonspecific skin eruption (principal); R53.1 Weakness; R41.0 Disorientation, unspecified; R82.90 Unspecified abnormal findings in urine; R42 Dizziness and giddiness; Z95.0 Presence of cardiac pacemaker; Z79.899 Other long term (current) drug therapy; Z86.19 Personal history of other infectious and parasitic diseases
CPT/HCPCS: 36415; 80053; 81001; 82150; 83690; 85025; 86677; 99283

== ENCOUNTER 2017-03-26 12:51 | Outpatient (CLI) ==
[2017-03-26 13:22] LABS: BILIRUBIN,URINE Negative (NEGATIVE); KETONES,URINE Negative (NEGATIVE); LEUKOCYTE ESTERASE ,URINE Negative (NEGATIVE); NITRITE,URINE Negative (NEGATIVE); PROTEIN,URINE Negative (NEGATIVE); URINE, BLOOD 1+ (NEGATIVE)
[2017-03-26 13:25] LABS: ADD URINE MICROSCOPIC YES
== END 2017-03-26 12:52 | disposition home or self-care (01) ==
LOC: NONPT 12:51
PROVIDERS: ATTEND Emergency Medicine
DX: R35.0 Frequency of micturition (principal)
CPT/HCPCS: 81001

== ENCOUNTER 2018-04-26 10:55 | Outpatient (CLI) | END 2018-04-26 10:56 | disposition home or self-care (01) | LOC: RHC-LAB 10:55 | PROVIDERS: ATTEND Emergency Medicine | DX: G30.1 Alzheimer's disease with late onset (principal); N40.1 Benign prostatic hyperplasia with lower urinary tract symptoms; J06.9 Acute upper respiratory infection, unspecified | CPT/HCPCS: 36415; 80053; 84443; 85025 ==

== ENCOUNTER 2018-08-16 10:42 | Outpatient (CLI) | END 2018-08-16 11:01 | disposition short-term general hospital (02) | LOC: AMBL 10:42 | PROVIDERS: ATTEND Emergency Medicine | DX: M54.9 Dorsalgia, unspecified (principal); W19.XXXA Unspecified fall, initial encounter; G30.9 Alzheimer's disease, unspecified; F02.80 Dementia in other diseases classified elsewhere, unspecified severity, without behavioral disturbance, psychotic disturbance, mood disturbance, and anxiety ==

== ENCOUNTER 2019-02-05 16:03 | Outpatient (CLI) | END 2019-02-05 16:04 | disposition home or self-care (01) | LOC: RHC-LAB 16:03 | PROVIDERS: ATTEND Family Medicine | DX: G30.1 Alzheimer's disease with late onset (principal); Z86.2 Personal history of diseases of the blood and blood-forming organs and certain disorders involving the immune mechanism; Z86.39 Personal history of other endocrine, nutritional and metabolic disease | CPT/HCPCS: 36415; 80053; 82607; 85025 ==

== ENCOUNTER 2019-06-14 11:57 | Outpatient (CLI) | payer OTHER ==
[2019-06-14 15:09] VITALS: BMI 20.3
== END 2019-06-14 12:02 | disposition critical access hospital (66) ==
LOC: AMBL 11:57
PROVIDERS: ATTEND Emergency Medicine
DX: R50.9 Fever, unspecified (principal); R82.90 Unspecified abnormal findings in urine; Z87.440 Personal history of urinary (tract) infections; R41.82 Altered mental status, unspecified; F03.90 Unspecified dementia, unspecified severity, without behavioral disturbance, psychotic disturbance, mood disturbance, and anxiety; G47.33 Obstructive sleep apnea (adult) (pediatric)

== ENCOUNTER 2019-06-14 12:14 | Inpatient (IN) ==
--- NOTE | 2019-06-14 13:06 | ED.PDOC ---
General ED Provider: Dr. ALEXX ISAAC Chief Complaint: Urinary Problem Stated Complaint: Mental status changes. Daughter states her father has recently finished a course of antibiotics for UTI.,. This morning had elevated temperature 101.6. Has decreased responsiveness and acting as if he has infection. Time Seen by Physician: 12:40 Mode of Arrival: Walk-In Information Source: Patient Primary Care Provider: AYAN STOVER Referred to ED by: PCP, Other Nursing and Triage Documentation Reviewed and Agree: Yes Does patient meet sepsis criteria?: Yes If yes, has appropriate treatment been initiated?: Yes System Inflammatory Response Syndrome: Temp 101F or Greater (recorded at home this morning ) Sepsis Protocol: For patient's 13 years and over: Temp is 96.8 and below OR 101 and greater Pulse >90 BPM Resp >20/minute Acutely Altered Mental Status Are patient's symptoms suggestive of a new infection, such as: -Pneumonia -Skin, Soft Tissue -Endocarditis -UTI -Bone, Joint Infection -Implantable Device -Acute Abdominal Infection -Wound Infection -Meningitis -Blood Stream Catheter Infection -Unknown Complaint Exam - Complaint/Exam Onset/Duration: This morning Symptoms Are: Still present Timing: Constant Initial Severity: Moderate Current Severity: Moderate Location of Pain: Reports: None Aggravating: Reports: None Alleviating: Reports: None Associated Signs and Symptoms: Reports: Lethargy Related History: Reports: Similar episode Testicular Torsion Risk Factors: Reports: None Surgical Obstruction Risk Factors: Reports: None Related Surgical History: Reports: None Abdominal Findings: Present: None Differential Diagnoses: UTI Review of Systems - Review Of Systems Constitutional: Reports: No symptoms (Unable to assess -pt non verbal and minimally responsive) Eyes: Reports: No symptoms Ears, Nose, Mouth, Throat: Reports: No symptoms Respiratory: Reports: No symptoms Cardiac: Reports: No symptoms GI: Reports: No symptoms : Reports: No symptoms Musculoskeletal: Reports: No symptoms Skin: Reports: No symptoms Neurological: Reports: No symptoms Endocrine: Reports: No symptoms Hematologic/Lymphatic: Reports: No symptoms All Other Systems: Reviewed and Negative Past Medical History - Past Medical History Endocrine: Reports: None Cardiovascular: Reports: None Respiratory: Reports: None Hematological: Reports: None Gastrointestinal: Reports: None Genitourinary: Reports: None Neuro/Psych: Reports: Seizure Musculoskeletal: Reports: None Cancer: Reports: None Other Pertinent Past Medical History: shingles/enlarged prostate - Surgical History General Surgical History: Reports: Pacemaker - Family History Family History: Reports: Unknown - Social History Smoking Status: Never smoker Hx Substance Use: No Alcohol Screening: Occasionally - Immunizations Tetanus Shot up to Date: No Physical Exam - Physical Exam Appearance: Ill-appearing Ill-appearing: Moderate Pain Distress: None Eyes: MARIA LUISA, EOMI, Conjunctiva clear ENT: Ears normal, Nose normal, Oropharynx normal Neck: Supple Respiratory: Airway patent, Breath sounds clear, Breath sounds equal, Respirations nonlabored Cardiovascular: RRR, Pulses normal, No rub, No murmur GI/: Soft, Nontender, No masses, Bowel sounds normal, No Organomegaly Skin: Warm, Dry, Normal color Neurological: Motor intact, Disoriented Interpretation - Radiology Interpretation Radiology Interpretation By: ED Physician Radiology Results: No acute changes Physician Notification - Case Discussed Physician Notified: Dr Stover Time of Notification: 14:15 (agrees to admit) Critical Care Note - Critical Care Note Total Time (mins): 30 Course - Course Hematology/Chemistry: 06/14/19 13:25 06/14/19 13:25 Orders, Labs, Meds: Lab Review 06/14/19 06/14/19 06/14/19 13:25 13:25 13:25 WBC 6.18 RBC 4.46 L Hgb 14.4 Hct 45.3 MCV 101.6 H MCH 32.3 H MCHC 31.8 RDW Coeff of [place] 13.5 Plt Count 140 Immature Gran % (Auto) 0.3 Neut % (Auto) 71.6 Lymph % (Auto) 19.3 [place] % (Auto) 7.9 Eos % (Auto) 0.6 Baso % (Auto) 0.3 Immature Gran # (Auto) 0.0 Neut # (Auto) 4.4 Lymph # (Auto) 1.2 [place] # (Auto) 0.5 Eos # (Auto) 0.0 Baso # (Auto) 0.0 Sodium 145.4 H Potassium 3.91 Chloride 110.5 H Carbon Dioxide 28.4 Anion Gap 10.41 BUN 26.9 H Creatinine 1.00 Estimated GFR (MDRD) 71.00 BUN/Creatinine Ratio 26.90 Glucose 191.2 H Lactic Acid Calcium 9.23 Total Bilirubin 0.52 AST 52.0 ALT 29.2 Alkaline Phosphatase 105.0 Total Protein 7.85 Albumin 4.25 Globulin 3.60 Albumin/Globulin Ratio 1.18 Procalcitonin 0.19 Urine Color Urine Clarity Urine pH Ur Specific [place] Urine Protein Urine Glucose (UA) Urine Ketones Urine Blood Urine Nitrite Urine Bilirubin Urine Urobilinogen Ur Leukocyte Esterase Urine Microscopic WBC Ur Squamous Epith Cells Amorphous Sediment Urine Mucus 06/14/19 06/14/19 13:25 13:30 WBC RBC Hgb Hct MCV MCH MCHC RDW Coeff of [place] Plt Count Immature Gran % (Auto) Neut % (Auto) Lymph % (Auto) [place] % (Auto) Eos % (Auto) Baso % (Auto) Immature Gran # (Auto) Neut # (Auto) Lymph # (Auto) [place] # (Auto) Eos # (Auto) Baso # (Auto) Sodium Potassium Chloride Carbon Dioxide Anion Gap BUN Creatinine Estimated GFR (MDRD) BUN/Creatinine Ratio Glucose Lactic Acid 2.88 H Calcium Total Bilirubin AST ALT Alkaline Phosphatase Total Protein Albumin Globulin Albumin/Globulin Ratio Procalcitonin Urine Color Yellow Urine Clarity Clear Urine pH 5.0 Ur Specific [place] >=1.030 Urine Protein 2+ Urine Glucose (UA) Negative Urine Ketones Negative Urine Blood Negative Urine Nitrite Negative Urine Bilirubin Negative Urine Urobilinogen 0.2 Ur Leukocyte Esterase Negative Urine Microscopic WBC 0-2 Ur Squamous Epith Cells 5-10 Amorphous Sediment Trace Urine Mucus 1+ Orders Category Date Time Status ADMIT PATIENT INPATIENT .TO [facility] [place] (MONITORED BED) ADMISSION 06/14/19 14: 14 Active TELEMETRY MONITORING TELE CARE 06/14/19 14:14 Active BLOOD CULTURE (ED ONLY) Stat LAB 06/14/19 13:25 Received CBC W/ AUTO DIFF Stat LAB 06/14/19 13:25 Completed CMP [COMPREHENSIVE METABOLIC PANEL] Stat LAB 06/14/19 13:25 Completed LACTIC ACID Stat LAB 06/14/19 13:25 Completed PROCALCITONIN Stat LAB 06/14/19 13:25 Completed UA [URINALYSIS C & S IF INDICATED] Stat LAB 06/14/19 13:30 Completed Sodium Chloride 0.9% [Sodium Chloride] 1,000 ml MEDS 06/14/19 14:06 Active IV BOLUS CHEST, 1V AP ONLY Stat RADS 06/14/19 14:04 Ordered Medications Generic Name Dose Route Start Last Admin Trade Name Freq PRN Reason Stop Dose Admin Sodium Chloride 1,000 mls @ 500 mls/hr 06/14/19 14:06 Sodium Chloride IV 06/14/19 16:05 BOLUS STA Vital Signs: Temp Pulse Resp BP Pulse Ox 06/14/19 12:14 98.1 F 93 H 18 125/73 96 Departure - Departure Time of Disposition: 14:20 Disposition: ADMITTED INPATIENT Discharge Problem: Sepsis, Dementia, Dehydration, Type 2 diabetes mellitus Condition: Stable Pt referred to PMD for follow-up: Yes (Dr Stover) IPMP verified?: No Allergies/Adverse Reactions: Allergies dexamethasone [From Decadron] Adverse Reaction (Severe, Verified 06/14/19 12:18) stopped breathing stopped breathing Home Medications: Ambulatory Orders 1 [No Reported Medications] 06/14/19 Disposition Discussed With: Family, Other (Dr Romero)
[2019-06-14] MEDS ORDERED: SODIUM CHLORIDE 1,000 ML IV STA (14:06)
--- NOTE | 2019-06-14 14:32 | DI ---
EXAM: Chest one view HISTORY: Fever in mental status changes COMPARISON: 11/02/1969 TECHNIQUE: Single view of the chest was performed FINDINGS: Similar left chest pacing device. The lungs are clear. There is no pleural effusion or pn eumothorax. The heart is normal in size. The mediastinal contour is normal. There are no acute abn ormalities of the bones. Advanced degenerative changes of the right shoulder. IMPRESSION: No acute cardiopulmonary process.
[2019-06-14 15:09] VITALS: BMI 20.3
--- NOTE | 2019-06-14 16:26 | PCM ---
- Chief Complaint Chief Complaint: Altered mental status, urinary changes. Dehydration - History of Present Illness History of Present Illness: 83 yr old male presented to ED today at 12:40 with daughter noting that father recently completed course of abx for UTI. This am temp noted to be 101.6. Decreased responsiveness and acting to daughter as if infection was worsening. Vitals in ER temp 98.1, pulse 93, rr 18, bp 125/73, pulse ox 96% on RA. WBC noted to be 6.18, hgb 14.4, plt 140, MCV was elevate at 101.6 but no anemia. Chemistry showed minimally elevated sodium 145.4, cl 110.5, BUN 26.9 elevated and Cr okay at 1.0 with GFR 71. Glucose elevated at 191.2 non fasting. Lactic acid 2.88 and procalcitonin 0.19. Calcium noted at 9.23, AST 52, alt 29, albumin 4.25. Urine showed clear yellow color pH 5.0 with SG 1.030. Neg gl, ket, blood, nit, bili, urobili, micro WBC 0-2, ur squam 5-10, trace amorphous sediment and mucus. Based on presentation he did not meet SIRS/Sepsis criteria but his lactate was elevated. complain present with lethargy, suprapubic pain. Patient was non verbal in ED, minimally responsive in ED. ?H/o Seizure. History of enlarged prostate, history of shingles. Patient noted by ED to be ill appearing and no other findings on examination. CXR today negative. I talked with ED and patient had blood cultures ordered. They gave rocephin in ED. I will change this to invanz. I will get records on recent antibiotic use, I will order CT of head as well as CT of abd/pelvis with contrast. Fluids started in ED 1000ml NS 500 ml/hr bolus. I was called at 14:40 and patient seen 16:10 in room 122. Reviewed outpatient chart. Patient last OV with me was 2018. History of BPH, urinary issues, URTI, Onychomycosism b12 deficiency, alzheimers. History from daughter. Patient has alzheimers and is confused. He is DNR. Afebrile in hospital. Daughter provided all history noted she thinks he is dehydrated as he acts like this (worse) when dehydrated. Per ER nurse note patient took 7 day of abx. Disoriented x3, rigid. Per daughter he has had symptoms for past 1 week. Daughter noted that Dr. Vasquez gave him extra abx, 2 days was better, then he was running fever again. Per daughter used amoxil 500, which was an old rx from Dr. Vasquez that they had lying around. These 04/26/18 per daughter. He was using these BID, he has had to consume these via crush. daughter feels that abdomen looks swollen. He only goes from bed to chair. Daughter noted once per year over last 4 years had to go into hospital, abx and saline drip, his mental status comes back will open mouth to food. He does not understand anything normally. Daughter wants to bring back home with hospice if needed. Daughter will be back around 5pm. Radiology talked with daughter to get consent for this treatment for CT of head and abd/pelvis. Discussed with her to not use extra abx, to finish course of treatment. Daughter is aware of father deterioration and that his mental status is problematic/worsened. patient unable to provide history. Daughter arrived 17:15 after patient back from radiology. CT head w/o and CT abd/pelvis with and without. I marlen ordered invanz until urine culture/blood culture. ns 100 ml/hr overnight. npo until speech eval. Per daughter ice cream and cake last night. No choking if he is completely upright. He has been like this confused and non responsive. She notes that if it is cold near his lips he will open, if warm he will not. He is not choking per patient daughter. he had surgery on right foot. he has had contracture a long time. 3 days ago talking with daughter. She notes he has not been making words for a long time. When this clears up he will pop back out of it. No diarrhea. Constipation chronically. He is not on medications. daughter notes that she has had this same process 1x per year for last 4 years. He is being treated for UTI. He ate last night. She is not ready for hospice. Daughter agrees with this assessment that they are close but not willing to talk to them left. She notes if he is sitting at 90 degrees he can swallow. I noted that while he is having worsening altered status we do not want to feed him. Discussed altered mental status. I am concerned with feeding him. Discussed overnight monitoring. No history of CHF. has ANDREW. Daughter states do not let him lay flat. - Review of Systems Constitutional: fever, chills, weakness, fatigue, loss of appetite, other ( History provided by daughter. Patient unable to provide History or ROS secondary to changes in mental status acute on chronic. ). No: sweats Eyes: No: blurred vision, double-vision, discharge, itching, pain, redness, photophobia, other Ears: No: pain, bleeding, drainage, ringing, hearing loss, other Nose: No: bleeding, congestion, discharge, other Throat: No: pain, swelling, voice change, other Mouth: No: bleeding, pain, swelling, other Respiratory: No: cough, shortness of air, wheeze, hemoptysis, pain with breathing, other Cardiovascular: No: chest pain, left arm pain, diaphoresis, PND, orthopnea, edema, palpitations, syncope, other Gastrointestinal: abdominal pain. No: other, nausea, vomiting, diarrhea, melena , hematemesis, hematochezia, dysphagia, constipation Genitourinary: dysuria, frequency, incontinence. No: hematuria, flank pain, penile discharge, testicular pain, testicular swelling, other Neurological: No: headache, other, dizziness, seizure, numbness, weakness, speech difficulty, problems with walking, tremor, fainting Musculoskeletal: No: pain, swelling in joints, other Skin: No: rash, pruritus, lacerations, wounds, bruising, other Immunology: No: hives, itching, frequent infections, difficulty healing, other Hematology: No: easy bruising, easy bleeding, swollen glands, other Endocrine: No: weight changes, cold intolerance, heat intolerance, excessive thirst, excessive hunger, polyuria, other Psychiatric: No: depression, anxiety, sleeplessness, hopelessness, suicidal, hallucinations, other Habits: No: tobacco use, substance use, alcohol use, other - Past Medical History Past Medical History: Alzheimers, dementia, disorder of prostate. pacemaker. Hip surgery 2016. Seizure in 2014, BPH, urinary incontinence. - Past Surgical History Past Surgical History: Hip surgery 2016. Pacemaker. - Allergies Allergies/Adverse Reactions: Allergies Allergy/AdvReac Type Severity Reaction Status Date / Time dexamethasone [From Decadron] AdvReac Severe stopped Verified 06/14/19 12:18 breathing - Family History Past Family History: Alzheimers brother. Diabetes brother. Fam hx of [place] in father, skin cancer in brother. - Social History Past Social History: Never smoker, no ETOH intake, no listed confucianism. - Body Composition Height: 5 ft 7 in Weight: 130 lb 1.164 oz Body Mass Index (BMI): 20.3 - Physical Examination HEENT: Vitals: Vital Signs - 24 hr 06/14/19 06/14/19 12:14 14:50 Temperature 98.1 F 99.2 F Pulse Rate 93 H 93 H Pulse Rate [ 100 H Left Apical] Respiratory 18 20 Rate Blood Pressure 125/73 O2 Sat by Pulse 96 93 L Oximetry Constitutional: Appearance-No acute distress, Consistent with stated age. Orientation- Oriented x 3, alert Gait- bed bound. contractures internal rotation of ankles bilaterally, flexion at elbows. Build and Nutrition-[BMI 20] General- Patient is pleasant and cooperative with the interview and exam. Integumentary: General-No rashes, ulcers or lesions. Palpation- Normal skin moisture/turgor. Skin is warm to touch, appropriate. Capillary refill is normal bilateral Upper and lower extremity. Numerous lentigines along scalp. SK noted along head/neck as well. Small area of sacral erythema without skin breakdown. Head/Neck: Head- normocephalic and atraumatic. Neck- without visible/palpable lumps or pulsations. Palpation- No bony tenderness about head/neck along frontal, occipital, temporal, parietal, mastoid, jawline, zygoma, orbit or any other location. NO temporal artery tenderness. No TMJ tenderness. Neck Supple. Thyroid-No thyromegaly, no nodules Eye: Bilaterally PERRLA, EOMI. No discharge. Upper and lower eyelids are normal. Sclera/conjunctiva normal without discharge. Cornea is normal and clear. Lens is normal. Eyeball appears normal. No ciliary flushing, no conjunctival injection. ENMT: Pinna- normal without tenderness or erythema. External auditory canal Left- normal without erythema or discharge, excessive cerumen. External auditory canal Right-normal without erythema or discharge, excessive cerumen. TM left- Unable to visualize due to cerumen. TM Right- Partial visibility. [place]/ pearly, normal light reflex and anatomy Hearing Assessment-Alzheimers, altered mental status unable to assess. Nose and sinus- No sinus tenderness along frontal/maxillary region. External appearance normal and midline. Nares- bilateral quiet airflow, no discharge. Nasal mucosa- No bleeding noted and no ulcerations observed. [place], moist. Turbinates non boggy. Lips- normal color, moist without cracks/lesions Oral Cavity/Palate- hard/soft palate intact without lesions, oral mucosa pink and moist.Tongue normal midline. Oropharynx- no pharyngeal erythema, Uvula midline. No post nasal drip. No exudate. Salivary glands- Non tender to palpation CHEST/LUNG: Inspection- symmetric chest wall no pectus deformity. Normal effort , no distress, no use of accessory muscles. Palpation- nontender sternum, ribline. No abnormal pulsations. Auscultation- Breath sounds normal throughout all lung christian. Normal tracheal sounds, Normal bronchial sounds overlying sternum, Bronchovessicular sounds normal between scapulae posteriorly, Normal vessicular breath sounds heard throughout periphery. Lungs are clear today. Adventitious sounds- No wheezes, rales, rhonchi. Shallow inspiration, no obvious adventitious sounds. Would not follow instructions to breath in/out. CARDIOVASCULAR: Carotid artery- normal, no bruits or abnormal pulsations. Jugular vein- no pulsations. Palpation/Percussion- Normal PMI, no palpable thrill Auscultation- Distant heart sounds. Regular rate and rhythm. No murmur noted in sitting, supine positions. Extremities- no digital clubbing, cyanosis, edema , increased warmth. ABDOMEN: Inspection- normal and no visible pulsations. Normal contour. round abdomen. Auscultation- Bowel sounds normal, no abdominal bruits. Palpation/ Percussion- soft, non-tender, no rebound tenderness, no rigidity (guarding), no jar tenderness, no masses. Liver-no appreciable hepatomegaly, Rectal not examined. He was not having any pain/irritation to examination. No grimmace to palpation shallow or deep. Peripheral Vascular: Upper extremity Left- Normal temperature with pink nailbeds and no ulcerations. Upper extremity Right- Normal temperature with pink nailbeds and no ulcerations. Lower extremity- Normal temperature with pink nailbeds and no ulcerations. DP pulses 1+ bilaterally. Pedal hair reduced. genital: Adult diaper. Normal appearing penis. Normal appearing testicles/ scrotum, no obvious swelling. Musculoskeletal: Generalized-No generalized swelling or edema of extremities, no digital clubbing or cyanosis, neurovascularly intact all four extremities. Upper extremity- Symmetrical posture. No visible deformity. NO grimmace to palpation overlying shoulder, lateral/medial epicondyle. Flexion at elbows. No skin breakdown. 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 Elbow palpated, no visible deformity. No obvious tenderness overlying olecranon. Lower extremity- tight hamstring/quad. Would not move extremities. No edema. He has contracture of ankles with inversion. No skin breakdown. DP pulses 1+. would not flex/extend hips/knees. Neurological: GCS E2,V2,M4 (Total 8). Negative Babinski (down-gowing). Unable to assess CN as he will not follow commands. Daughter contacted and discussed the findings with her. Known alzheimers, Face is symmetrical and normal sensation/movement. Reflexes- intact with DTR 2+ patellar, Achilles, bicep, brachial, tricep. Ankle clonus normal with 2 beats. Babinski negative/ downgoing. Soft touch- Non responsive. Temperature sensation- Non responsive. Did nto follow commands. Cerebellar testing- Unable to cooperate. . Neuropsych: Disoriented- x3 to Person, place, time. Mood/affect- Incoherent. Speech- incoherent speech. abnormal use of language Thought content- abnormal, inability to perform basic computations. Associations- unable to assss. Judgment/insight- unable to assess. Memory- unable to assess Knowledge- unable to assess Lymphatic: Head/Neck- normal size and non tender to palpation. Axillary- normal size and non tender to palpation. Femoral and Inguinal- normal size and non tender to palpation. - Lab/Tests/Diagnostic Imaging Lab/Tests/Diagnostic Imaging: Laboratory Results - last 24 hr 06/14/19 06/14/19 06/14/19 13:25 13:25 13:25 WBC 6.18 RBC 4.46 L Hgb 14.4 Hct 45.3 MCV 101.6 H MCH 32.3 H MCHC 31.8 RDW Coeff of [place] 13.5 Plt Count 140 Immature Gran % (Auto) 0.3 Neut % (Auto) 71.6 Lymph % (Auto) 19.3 [place] % (Auto) 7.9 Eos % (Auto) 0.6 Baso % (Auto) 0.3 Immature Gran # (Auto) 0.0 Neut # (Auto) 4.4 Lymph # (Auto) 1.2 [place] # (Auto) 0.5 Eos # (Auto) 0.0 Baso # (Auto) 0.0 Sodium 145.4 H Potassium 3.91 Chloride 110.5 H Carbon Dioxide 28.4 Anion Gap 10.41 BUN 26.9 H Creatinine 1.00 Estimated GFR (MDRD) 71.00 BUN/Creatinine Ratio 26.90 Glucose 191.2 H Lactic Acid Calcium 9.23 Total Bilirubin 0.52 AST 52.0 ALT 29.2 Alkaline Phosphatase 105.0 Total Protein 7.85 Albumin 4.25 Globulin 3.60 Albumin/Globulin Ratio 1.18 Procalcitonin 0.19 Urine Color Urine Clarity Urine pH Ur Specific [place] Urine Protein Urine Glucose (UA) Urine Ketones Urine Blood Urine Nitrite Urine Bilirubin Urine Urobilinogen Ur Leukocyte Esterase Urine Microscopic WBC Ur Squamous Epith Cells Amorphous Sediment Urine Mucus 06/14/19 06/14/19 13:25 13:30 WBC RBC Hgb Hct MCV MCH MCHC RDW Coeff of [place] Plt Count Immature Gran % (Auto) Neut % (Auto) Lymph % (Auto) [place] % (Auto) Eos % (Auto) Baso % (Auto) Immature Gran # (Auto) Neut # (Auto) Lymph # (Auto) [place] # (Auto) Eos # (Auto) Baso # (Auto) Sodium Potassium Chloride Carbon Dioxide Anion Gap BUN Creatinine Estimated GFR (MDRD) BUN/Creatinine Ratio Glucose Lactic Acid 2.88 H Calcium Total Bilirubin AST ALT Alkaline Phosphatase Total Protein Albumin Globulin Albumin/Globulin Ratio Procalcitonin Urine Color Yellow Urine Clarity Clear Urine pH 5.0 Ur Specific [place] >=1.030 Urine Protein 2+ Urine Glucose (UA) Negative Urine Ketones Negative Urine Blood Negative Urine Nitrite Negative Urine Bilirubin Negative Urine Urobilinogen 0.2 Ur Leukocyte Esterase Negative Urine Microscopic WBC 0-2 Ur Squamous Epith Cells 5-10 Amorphous Sediment Trace Urine Mucus 1+ CXR: negative. - Assessment (1) Metabolic encephalopathy Status: Acute Code(s): G93.41 - METABOLIC ENCEPHALOPATHY SNOMED Code(s): 56649816 (2) Hypernatremia Status: Acute Code(s): E87.0 - HYPEROSMOLALITY AND HYPERNATREMIA SNOMED Code (s): 24180062 (3) Urinary tract infection Status: Acute Code(s): N39.0 - URINARY TRACT INFECTION, SITE NOT SPECIFIED SNOMED Code(s): 54326271 (4) Dehydration Status: Acute Code(s): E86.0 - DEHYDRATION SNOMED Code(s): 52867865 (5) Dementia Status: Acute Code(s): F03.90 - UNSPECIFIED DEMENTIA WITHOUT BEHAVIORAL DISTURBANCE SNOMED Code(s): 27109957 (6) Type 2 diabetes mellitus Status: Acute - Plan Plan: Metabolic encephalopathy/Altered mental status: At present there is possibility of urosepsis. Reported fever at home. HIs puse was fine, his BP was fine, afebrie in ER and his WBC was normal. He did not meet SIRS criteria but his lactic acid was elevated. He is currently at a GCS of 8, obtunded and unable to answer questions. He has completed 1 L NS. I will continue fluids at 100ml/hour overnight with NS. His K+ is okay at 3.91. HIs sodium is mildly elevated at 145.4. He has chronic Alzheimers dementia. No dx of UTI recently but ?urological symptoms per daughter. She used old/ abx amoxil for this problem. She notes 4 bouts of this per year. Unfortunately he cannot answer questions, cannot follow instructions. She is not interested in hospice at present. His labs are not terrible and that makes this situation more difficult. Urine culture/blood culture pending. She feels he is worse than baseline. I discussed hospice, daughter is not interested. I discussed NPO for now. Will get speech/bedside swallow eval. He is not on metformin. We will get CT of head and abd/pelvis with and without contrast. - Admit inpatient - Telemetry - CBC/CMP in am - NPO overnight - NS 100ml/hour maintenance - INvanz 1 gram IV x 7 days. - Await urine culture - Await blood cultures. - Await CT head - Await CT abd/pelvis w/ and w/o. - Tylenol CT if temp >100.5. - SPeech therapy evaluation. Hypernatremia: Minimal. Will provide NS overnight and recheck in am. Unknown etiology, ?dehydration. ?SIADH. He takes no meds at present. Will fluid hydrate and reassess in am. - CMP in am. Hyperglycemia: History of DM. A1C 5.2 11/03/16. No newer data. Glucose 191.2 in ED. We will check A1C. - A1C. DVT Prophy: Lovenox 40mg subut. Chronic Alzheiemers Dementia: Baseline unknown to me. He has chronic contracture of right ankle. Chronic low GCS per daughter. He is worse now. Sacral erythema: Roll patient, wound management, padding/calmoseptine as needed. Disposition: I am concerned about the obtunded status. Etiology unknown. He has acute mild hypernatremia that should resolve with fluids. If needed we will change to D5W to reduce sodium by 10meq per 24 hour period. I will await cultures, await imaging. Today >70 minutes spent on admit.
--- NOTE | 2019-06-14 17:23 | CT ---
EXAM: CT of the head without contrast. HISTORY: Altered mental status. COMPARISON: 02/22/2017. TECHNIQUE: Noncontrast CT of the head. FINDINGS: No intracranial hemorrhage or mass effect is identified. Moderate to advanced sulcal prominence is a gain seen. Ventriculomegaly has not significantly changed. Moderate bicerebral pararticular white m atter hypodensities are again seen. No kaur white matter differentiation loss is seen to suggest an a cute infarct. Intracranial calcified atherosclerotic plaque is seen. The calvarium is intact. The visualized paranasal sinuses are unopacified. IMPRESSION: No evidence of an acute intracranial process. Atrophy and chronic small vessel ischemic changes. No significant change in the ventriculomegaly.
[2019-06-14] MEDS: INVANZ 1 GM in SODIUM CHLORIDE 50 ML IV SCH (17:30)
[2019-06-14] MEDS ORDERED: TYLENOL RC PRN (17:52)
[2019-06-14] MEDS: SODIUM CHLORIDE 1,000 ML IV SCH (18:10)
[2019-06-15] MEDS: SODIUM CHLORIDE 1,000 ML IV SCH ×2 (04:15→19:21)
--- NOTE | 2019-06-15 04:45 | CT ---
EXAM: CT abdomen pelvis without and with intravenous contrast 06/14/2019. Sagittal and coronal refo rmatted obtained HISTORY: Urosepsis COMPARISON: 11/05/2016 FINDINGS: Bibasilar atelectasis. The liver shows no acute abnormality. Gallstone is present. The adrenal glands and kidneys show no acute abnormality. No hydronephrosis. The spleen and pancreas show no acute abnormality. There is a large quantity of stool in the colon suggesting constipation/fecal stasis. Very large sharron ntity of stool within the rectum which may represent fecal impaction. Perirectal edema. Stercoral colitis is not excluded. Unremarkable urinary bladder. There is no evidence of appendicitis. Compression fracture at T12 appears chronic. L1 fracture is new since the prior study and age indete rminate. IMPRESSION: 1. Large quantity of stool in the colon suggesting constipation/fecal stasis. Very large quantit y of stool within the rectum which may represent fecal impaction. Perirectal edema. Stercoral colit is is not excluded. Disimpaction would be of benefit. 2. Cholelithiasis. 3. Chronic T12 compression fracture. Age indeterminate L1 compression fracture.
--- NOTE | 2019-06-15 07:12 | PCM.PROG ---
Subjective: 83 yr old CM HD #2, invanz day #2 with altered mental status, recent urinary symptoms self treated by daughter with amoxicillin. Patient was non verbal at admit, known chronic worsening alzheimers. Daughter provided history and noted father worsening. Reviewed overnight nursing notes 1946 temp 102.5 given rectal tylenol. Tele in place. no pedal edema, respiratory system unlabored, no cough, no URI, Abd soft, non tender, BS active x 4. UA sent to lab for cx. No s/sx of pain but will grimace and avoid pain. Mild redness to coccyx noted but no open area. Temp dropped to 99.1 by 21:31. Afebrile 06:18 x 2. Open eyes to name, will say a few words. Incomprehensible. No s/sx of pain per 06:20 note. He was febrile on 1 check 06/14/19 1800 at 102.5 else 98.2- 99.2. BP was fine up until 02:00 06/15/19 and he had mild elevated BP at 150/65. Else normal BP. Reviewed telemetry and normal sinus rhythm. RR 16-20 and stable. O2 remains 93-98% on room air. BM x 1, Void x 3. Incontinent. A1C returned 5.91. Labs this am were pending at time of note. Head CT returned after visit 06/14/19 and showed no e/o acute process, atrophy/chronic small vessel changes and moderate ventriculomegaly unchanged from previous evaluations. Abd/pelvis CT large amount of stool suggesting fecal stasis. Large amount within rectum ?impaction. Recommended disempaction. (BM post imaging) Cholelithiasis. Chronic t12 compression fracture age indeterminate. I talked with case management/nursing. No speech therapy is available until after . Daughter noted yesterday that she has been crushing meds and giving in pudding for a while and he will open to cold. I talked with nursing this am and they are able to do a nursing progressive swallow eval to order a speech eval. I will see if patient does okay with their screening first. Await CBC/ CMP. Await arrival of daughter to discuss care. So far neg Head CT, no obvious issues on ct abd/pelvis. Fever x 1. Urinary culture pending, blood culture pending. Chronic dementia,unknown baseline to examiner. CMP available 07:26 sodium increased from 145.4 to 147.4. He has acute hypernatremia. I will add d5W to his fluids for the next 8-10 hours to see how his sodium drops. We will monitor q 2-3 hour bmp until sodium back into 140 range. Goal no more than 10meq decrease in 24 hours. Glucose 113.6. As noted above a1c is fine. Remainder of CMP looks okay, creatinine 0.97. ROS: Unable to obtain secondary to patient obtunded and mumbling incoherently. Would not open eyes, did withdraw to pain. Chronic contracture of right ankle. Objective: Vital Signs - 24 hr 06/14/19 06/14/19 06/14/19 12:14 14:50 18:00 Temperature 98.1 F 99.2 F 102.5 F H Pulse Rate 93 H 93 H 90 Pulse Rate [ 100 H Left Apical] Respiratory 18 20 16 Rate Blood Pressure 125/73 139/78 O2 Sat by Pulse 96 93 L 96 Oximetry 06/14/19 06/14/19 06/14/19 19:45 21:33 22:00 Temperature 99.1 F 98.1 F Pulse Rate 73 Pulse Rate [ Left Apical] Respiratory 20 18 Rate Blood Pressure 105/61 O2 Sat by Pulse 98 Oximetry 06/15/19 06/15/19 02:00 05:36 Temperature 98.2 F 98.5 F Pulse Rate 87 88 Pulse Rate [ Left Apical] Respiratory 19 18 Rate Blood Pressure 150/65 H 124/74 O2 Sat by Pulse 95 97 Oximetry Constitutional: Appearance-No acute distress, Consistent with stated age. Orientation- non-oriented x 3, alert Gait- bed bound. contractures internal rotation of ankles bilaterally, flexion at elbows. Build and Nutrition-[BMI 20] . Integumentary: General-No rashes, ulcers or lesions. Palpation- Normal skin moisture/turgor. Skin is warm to touch, appropriate. Capillary refill is normal bilateral Upper and lower extremity. Numerous lentigines along scalp. SK noted along head/neck as well. Small area of sacral erythema without skin breakdown. Eye: Would not open eyes directly. Equal and round. ENMT: TM left- Unable to visualize due to cerumen. TM Right- Partial visibility. [place]/pearly, normal light reflex and anatomy Hearing Assessment- Alzheimers, altered mental status unable to assess. Nose and sinus- No sinus tenderness along frontal/maxillary region. External appearance normal and midline. Nares- bilateral quiet airflow, no discharge. Nasal mucosa- No bleeding noted and no ulcerations observed. [place], moist. Turbinates non boggy. Lips- normal color, moist without cracks/lesions Oral Cavity/Palate- hard/soft palate intact without lesions, oral mucosa pink and moist.Tongue normal midline. Oropharynx- no pharyngeal erythema, Uvula midline. No post nasal drip. No exudate. Salivary glands- Non tender to palpation CHEST/LUNG: . Auscultation- Breath sounds normal throughout all lung christian. Normal tracheal sounds, Normal bronchial sounds overlying sternum, Bronchovessicular sounds normal between scapulae posteriorly, Normal vessicular breath sounds heard throughout periphery. Lungs are clear today. Adventitious sounds- No wheezes, rales, rhonchi. Shallow inspiration, no obvious adventitious sounds. Would not follow instructions to breath in/out. CARDIOVASCULAR: Carotid artery- normal, no bruits or abnormal pulsations. Jugular vein- no pulsations. Palpation/Percussion- Normal PMI, no palpable thrill Auscultation- Distant heart sounds. Regular rate and rhythm. No murmur noted in sitting, supine positions. Extremities- no digital clubbing, cyanosis, edema , increased warmth. ABDOMEN: Inspection- normal and no visible pulsations. Normal contour. round abdomen. Auscultation- Bowel sounds normal, no abdominal bruits. Palpation/ Percussion- soft, non-tender, no rebound tenderness, no rigidity (guarding), no jar tenderness, no masses. Liver-no appreciable hepatomegaly, Rectal not examined. He was not having any pain/irritation to examination. No grimmace to palpation shallow or deep. Peripheral Vascular: Upper extremity Left- Normal temperature with pink nailbeds and no ulcerations. Upper extremity Right- Normal temperature with pink nailbeds and no ulcerations. Lower extremity- Normal temperature with pink nailbeds and no ulcerations. DP pulses 1+ bilaterally. Pedal hair reduced. genital: Adult diaper. Normal appearing penis. Normal appearing testicles/ scrotum, no obvious swelling. Musculoskeletal: Generalized-No generalized swelling or edema of extremities, no digital clubbing or cyanosis, neurovascularly intact all four extremities. Upper extremity- Symmetrical posture. No visible deformity. NO grimmace to palpation overlying shoulder, lateral/medial epicondyle. Flexion at elbows. No skin breakdown. 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 Elbow palpated, no visible deformity. No obvious tenderness overlying olecranon. Lower extremity- tight hamstring/quad. Would not move extremities. No edema. He has contracture of ankles with inversion. No skin breakdown. DP pulses 1+. would not flex/extend hips/knees. Neurological: GCS E2,V2,M4 (Total 8). Negative Babinski (down-gowing). Unable to assess CN as he will not follow commands. Daughter contacted and discussed the findings with her. Known alzheimers, Face is symmetrical and normal sensation/movement. Reflexes- intact with DTR 2+ patellar, Achilles, bicep, brachial, tricep. Ankle clonus normal with 2 beats. Babinski negative/ downgoing. Soft touch- Non responsive. Temperature sensation- Non responsive. Did nto follow commands. Cerebellar testing- Unable to cooperate. . Neuropsych: Disoriented- x3 to Person, place, time. Mood/affect- Incoherent. Speech- incoherent speech. abnormal use of language Thought content- abnormal, inability to perform basic computations. Associations- unable to assss. Judgment/insight- unable to assess. Memory- unable to assess Knowledge- unable to assess Laboratory Last Values WBC 5.74 K/ul (4.2-10.2) 06/15/19 07:24 RBC 4.08 10^6/ul (4.70-6.10) L 06/15/19 07:24 Hgb 13.2 g/dl (14.0-18.0) L 06/15/19 07:24 Hct 41.8 % (42.0-52.0) L 06/15/19 07:24 MCV 102.5 fl (80.0-94.0) H 06/15/19 07:24 MCH 32.4 pg (27.0-31.0) H 06/15/19 07:24 MCHC 31.6 (31.8-35.4) L 06/15/19 07:24 RDW Coeff of [place] 13.7 % (11.6-14.8) 06/15/19 07:24 Plt Count 120 10^3/uL (140-440) L 06/15/19 07:24 Immature Gran % (Auto) 0.5 % (0.0-5.0) 06/15/19 07:24 Neut % (Auto) 63.6 06/15/19 07:24 Lymph % (Auto) 24.2 (10.0-50.0) 06/15/19 07:24 [place] % (Auto) 10.5 (0-10) H 06/15/19 07:24 Eos % (Auto) 1.0 % (0.0-7.0) 06/15/19 07:24 Baso % (Auto) 0.2 % (0.0-3.0) 06/15/19 07:24 Immature Gran # (Auto) 0.0 (0.0-1.0) 06/15/19 07:24 Neut # (Auto) 3.7 K/ul (2.0-6.9) 06/15/19 07:24 Lymph # (Auto) 1.4 K/uL (0.60-3.4) 06/15/19 07:24 [place] # (Auto) 0.6 K/uL (0.4-2.0) 06/15/19 07:24 Eos # (Auto) 0.1 K/ul (0.0-0.7) 06/15/19 07:24 Baso # (Auto) 0.0 K/uL (0-0.2) 06/15/19 07:24 Sodium 146.0 mmol/L (134.5-145) H 06/15/19 16:02 Potassium 3.89 mmol/L (3.5-5.1) 06/15/19 16:02 Chloride 114.1 mmol/L (98-107) H 06/15/19 16:02 Carbon Dioxide 26.4 mmol/L (22-30.0) 06/15/19 16:02 Anion Gap 9.39 06/15/19 16:02 BUN 22.4 mg/dL (9-20) H 06/15/19 16:02 Creatinine 0.97 mg/dL (0.60-1.10) 06/15/19 16:02 Estimated GFR (MDRD) 74.00 mL/min 06/15/19 16:02 BUN/Creatinine Ratio 23.09 06/15/19 16:02 Glucose 131.9 mg/dL (74-106) H 06/15/19 16:02 Hemoglobin A1c 5.91 (4.0-6.0) 06/14/19 13:25 Lactic Acid 2.88 mmol/L (0.7-2.1) H 06/14/19 13:25 Calcium 8.39 mg/dL (8.4-10.2) L 06/15/19 16:02 Total Bilirubin 0.59 mg/dL (0.2-1.3) 06/15/19 07:26 AST 53.0 U/L (17-59) 06/15/19 07:26 ALT 29.1 U/L (0-50) 06/15/19 07:26 Alkaline Phosphatase 99.8 U/L (56-119) 06/15/19 07:26 Total Protein 7.14 g/dL (6.3-8.2) 06/15/19 07:26 Albumin 3.68 g/dL (3.5-5.0) 06/15/19 07:26 Globulin 3.46 06/15/19 07:26 Albumin/Globulin Ratio 1.06 06/15/19 07:26 Procalcitonin 0.19 ng/mL (<0.05) 06/14/19 13:25 Urine Color Yellow (YELLOW) 06/14/19 13:30 Urine Clarity Clear (CLEAR) 06/14/19 13:30 Urine pH 5.0 (5-9) 06/14/19 13:30 Ur Specific [place] >=1.030 (1.005-1.030) 06/14/19 13:30 Urine Protein 2+ (NEGATIVE) 06/14/19 13:30 Urine Glucose (UA) Negative (NEGATIVE) 06/14/19 13:30 Urine Ketones Negative (NEGATIVE) 06/14/19 13:30 Urine Blood Negative (NEGATIVE) 06/14/19 13:30 Urine Nitrite Negative (NEGATIVE) 06/14/19 13:30 Urine Bilirubin Negative (NEGATIVE) 06/14/19 13:30 Urine Urobilinogen 0.2 (0.2) 06/14/19 13:30 Ur Leukocyte Esterase Negative (NEGATIVE) 06/14/19 13:30 Urine Microscopic WBC 0-2 (0-2) 06/14/19 13:30 Ur Squamous Epith Cells 5-10 (0-5) 06/14/19 13:30 Amorphous Sediment Trace (NOT PRESENT) 06/14/19 13:30 Urine Mucus 1+ (NOT PRESENT) 06/14/19 13:30 Na/K Trends 06/14/19 06/15/19 06/15/19 Range/Units 13:25 07:26 09:50 Sodium 145.4 H 147.4 H 147.0 H (134.5-145) mmol/L Potassium 3.91 4.09 4.14 (3.5-5.1) mmol/L 06/15/19 06/15/19 Range/Units 12:57 16:02 Sodium 145.1 H 146.0 H (134.5-145) mmol/L Potassium 3.99 3.89 (3.5-5.1) mmol/L Head CT returned after visit 06/14/19 and showed no e/o acute process, atrophy/ chronic small vessel changes and moderate ventriculomegaly unchanged from previous evaluations. Abd/pelvis CT large amount of stool suggesting fecal stasis. Large amount within rectum ?impaction. Recommended disempaction. (BM post imaging) Cholelithiasis. Chronic t12 compression fracture age indeterminate. (1) Metabolic encephalopathy Status: Acute Code(s): G93.41 - METABOLIC ENCEPHALOPATHY SNOMED Code(s): 62456284 (2) Hypernatremia Status: Acute Code(s): E87.0 - HYPEROSMOLALITY AND HYPERNATREMIA SNOMED Code (s): 25166791 (3) Urinary tract infection Status: Acute Code(s): N39.0 - URINARY TRACT INFECTION, SITE NOT SPECIFIED SNOMED Code(s): 64543753 (4) Dehydration Status: Acute Code(s): E86.0 - DEHYDRATION SNOMED Code(s): 45894212 (5) Dementia Status: Acute Code(s): F03.90 - UNSPECIFIED DEMENTIA WITHOUT BEHAVIORAL DISTURBANCE SNOMED Code(s): 56440979 (6) Type 2 diabetes mellitus Status: Acute Plan: Metabolic encephalopathy/Altered mental status: HD #2. Invanz day #2. Will complete nursing bedside swallow and see if patient can eat. He is NPO for now. He is full transfer. DNR status. Daughter does not want NH, [place], Hospice at present. We will continue to await cultures. He has mild hypernatremia which is new. Change fluids to D5W and repeat BMP q 3 hours until this pm. CMP in am tomorrow. CBC in am tomorrow. Imaging reviewed and no obvious source of infection. We will use ~1ml/kg/hr of D5 W to decrease the sodium. - Continue Admit inpatient - Telemetry - CBC/CMP in am - BMP - NPO until speech eval. - D5W 83 ml/hour - INvanz 1 gram IV x 7 days. - Await urine culture - Await blood cultures. - Tylenol [place] if temp >100.5. - Bedside swallow. Hypernatremia: Minimal. D5 now. Will continue to fluid hydrate and reassess in pm today and again in am tomorrow - BMP regularly this am and pm - CMP in am. Hyperglycemia: A1C normal. Monitor. DVT Prophy: Lovenox 40mg subut. NO e/o blood per rectum, we will continue to monitor. Chronic Alzheiemers Dementia: Baseline remains unknown to me. Daughter not present in the am but was present in the pm today and she noted he was perking up and seems a bit more like his baseline. Sacral erythema: Roll patient, wound management, padding/calmoseptine as needed. Disposition: Remains obtunded, unable to provide information. Disoriented, not communicative. Etiology remains unknown. Await cultures. I will correct the acute mild hypernatremia with D5W. Continue to await cultures. Patient seen at 7:15 this am, 12:30 this pm, 17:15 this pm. I had a good discussion with patient daughter. He passed the nursing swallow study and she was feeding him. She has to dip the spoon in cold applesauce and he will open for the meat. Weight is stable, BMI is stable. Nursing to continue to help with transfers/ cleaning. Today >35 minutes spent with patient. .
[2019-06-15] MEDS: DEXTROSE 5%-WATER IV SOLN 1,000 ML IV SCH ×2 (09:01→21:22)
[2019-06-15] MEDS: INVANZ 1 GM in SODIUM CHLORIDE 50 ML IV SCH (09:07)
[2019-06-15] MEDS: LOVENOX SUBCUT SCH (09:07)
--- NOTE | 2019-06-16 08:09 | PCM.PROG ---
Subjective: 83 YO CM HD #3, INvanz abx day #3. Labs today showed prominent dilutional effect with wbc 4.36, hgb 11.3, plt 103. Chem panel sodium 138, K+ down to 3.05 , glucose stable at 122.1. Creatinine 0.83 and stable. Calcium listed at 7.90. Calcium corrected to 8.7 with albumin of 3.04. I will resume D51/2NS+20meq of K at 75ml/hr maintenance. Repeat BMP 1300 today. Will also have them give oral K+ crushed with meals BID. BC negative x 48 hours. Urine culture also negative from cath specimen. He has not had any fever since 06/14/19 21:33. Last recorded abnl temp was 102.5 at 1800 06/14/19. He did have a 99.8 at 02:00 on 06/16/19. He remains in NSR via telemetry. O2 saturation 95-97 on RA. Reviewed I+O data. Patient is incontinent. Has had 2 total BM in hospital. Several voids. He ate 25% of his dinner. Reviewed nursing notes 06/15/19 nursing d/w daughter about need to roll for decub. Daughter not happy with NPO status. Patient nursing bedside swallow at 12:49, more alert, eyes open, attempted to follow instructions, difficult due to alzheimers. Swallowed water w/o issues. Mechanical soft diet ordered. Tolerated mechanical soft diet. Regular thin liquids w/o difficulty. Per nursing 06/15/19 21:05 he was alert/ oriented. Feeding better able to communicate clearly. No new imaging today. Discussed case with am nurse and reviewed tele personally. ROS: mumbling incoherent, will follow some commands. Now with GCS of E4,V2, M6 12 total. This is better than the 6 at admit. He is awake, he is not oriented. NO obvious complaints. No rashes. Incontinent urine. Objective: Vital Signs - 24 hr 06/15/19 06/15/19 06/15/19 10:00 14:00 17:57 Temperature 98.7 F 98.0 F 98.8 F Pulse Rate 80 89 79 Respiratory 18 18 16 Rate Blood Pressure 121/58 L 120/76 104/63 O2 Sat by Pulse 97 95 96 Oximetry 06/16/19 06/16/19 02:00 05:15 Temperature 99.8 F H 98.1 F Pulse Rate 86 74 Respiratory 20 14 Rate Blood Pressure 137/76 107/67 O2 Sat by Pulse 96 97 Oximetry Constitutional: Appearance-No acute distress, Consistent with stated age. Orientation- Remains disoriented x 3, but more awake and alert than previously. Gait- bed bound. contractures of ankle internal rotation of ankles bilaterally, flexion at elbows. Build and Nutrition-[BMI 20] . GCS E4,v2,m6 total 12. Integumentary: General-No rashes, ulcers or lesions. Palpation- Normal skin moisture/turgor. Skin is warm to touch, appropriate. Capillary refill is normal bilateral Upper and lower extremity. Numerous lentigines along scalp. SK noted along head/neck as well. Small area of sacral erythema without skin breakdown. Eye: Opens eyes to command. Equal and round. ENMT: TM left- Unable to visualize due to cerumen. TM Right- Partial visibility. Macias/pearly, normal light reflex and anatomy Hearing Assessment- Alzheimers, altered mental status unable to assess. Nose and sinus- No sinus tenderness along frontal/maxillary region. External appearance normal and midline. Nares- bilateral quiet airflow, no discharge. Nasal mucosa- No bleeding noted and no ulcerations observed. [place], moist. Turbinates non boggy. Lips- normal color, moist without cracks/lesions Oral Cavity/Palate- hard/soft palate intact without lesions, oral mucosa pink and moist.Tongue normal midline. Oropharynx- no pharyngeal erythema, Uvula midline. No post nasal drip. No exudate. Salivary glands- Non tender to palpation CHEST/LUNG: . Auscultation- Breath sounds normal throughout all lung christian. Normal tracheal sounds, Normal bronchial sounds overlying sternum, Bronchovessicular sounds normal between scapulae posteriorly, Normal vessicular breath sounds heard throughout periphery. Lungs are clear today. Adventitious sounds- No wheezes, rales, rhonchi. Shallow inspiration, no obvious adventitious sounds. Would not follow instructions to breath in/out. CARDIOVASCULAR: Carotid artery- normal, no bruits or abnormal pulsations. Jugular vein- no pulsations. Palpation/Percussion- Normal PMI, no palpable thrill Auscultation- Distant heart sounds. Regular rate and rhythm. No murmur noted in sitting, supine positions. Extremities- no digital clubbing, cyanosis, edema , increased warmth. ABDOMEN: Inspection- normal and no visible pulsations. Normal contour. round abdomen. Auscultation- Bowel sounds normal, no abdominal bruits. Palpation/ Percussion- soft, non-tender, no rebound tenderness, no rigidity (guarding), no jar tenderness, no masses. Liver-no appreciable hepatomegaly, Rectal not examined. He was not having any pain/irritation to examination. No grimmace to palpation shallow or deep. Adult diaper. Normal appearing penis. Normal appearing testicles/scrotum, no obvious swelling. Peripheral Vascular: Upper extremity Left- Normal temperature with pink nailbeds and no ulcerations. Upper extremity Right- Normal temperature with pink nailbeds and no ulcerations. Lower extremity- Normal temperature with pink nailbeds and no ulcerations. DP pulses 1+ bilaterally. Pedal hair reduced. Musculoskeletal: Generalized-No generalized swelling or edema of extremities, no digital clubbing or cyanosis, neurovascularly intact all four extremities. Upper extremity- Symmetrical posture. No visible deformity. NO grimmace to palpation overlying shoulder, lateral/medial epicondyle. Flexion at elbows. No skin breakdown. 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 Elbow palpated, no visible deformity. No obvious tenderness overlying olecranon. Lower extremity- tight hamstring/quad. Would not move extremities. No edema. He has contracture of ankles with inversion. No skin breakdown. DP pulses 1+. would not flex/extend hips/knees. Neurological: GCS Total 12. Negative Babinski (down-gowing). Unable to assess CN as he will not follow commands well. Known alzheimers, Face is symmetrical and normal sensation/movement. Reflexes- intact with DTR 2+ patellar, Achilles , bicep, brachial, tricep. Ankle clonus normal with 2 beats. Babinski negative/ downgoing. Soft touch- Non responsive. Temperature sensation- Non responsive. Did nto follow commands. Cerebellar testing- Unable to cooperate. . Neuropsych: Disoriented- x3 to Person, place, time. Mood/affect- Incoherent. Speech- incoherent speech. abnormal use of language Thought content- abnormal, inability to perform basic computations. Associations- unable to assss. Judgment/insight- unable to assess. Memory- unable to assess Knowledge- unable to assess Laboratory Last Values WBC 4.36 K/ul (4.2-10.2) 06/16/19 05:00 RBC 3.53 10^6/ul (4.70-6.10) L 06/16/19 05:00 Hgb 11.3 g/dl (14.0-18.0) L 06/16/19 05:00 Hct 34.4 % (42.0-52.0) L D 06/16/19 05:00 MCV 97.5 fl (80.0-94.0) H D 06/16/19 05:00 MCH 32.0 pg (27.0-31.0) H 06/16/19 05:00 MCHC 32.8 (31.8-35.4) 06/16/19 05:00 RDW Coeff of Chepe 13.2 % (11.6-14.8) 06/16/19 05:00 Plt Count 103 10^3/uL (140-440) L 06/16/19 05:00 Immature Gran % (Auto) 0.5 % (0.0-5.0) 06/16/19 05:00 Neut % (Auto) 48.8 06/16/19 05:00 Lymph % (Auto) 35.3 (10.0-50.0) 06/16/19 05:00 Quay % (Auto) 12.2 (0-10) H 06/16/19 05:00 Eos % (Auto) 3.0 % (0.0-7.0) 06/16/19 05:00 Baso % (Auto) 0.2 % (0.0-3.0) 06/16/19 05:00 Immature Gran # (Auto) 0.0 (0.0-1.0) 06/16/19 05:00 Neut # (Auto) 2.1 K/ul (2.0-6.9) 06/16/19 05:00 Lymph # (Auto) 1.5 K/uL (0.60-3.4) 06/16/19 05:00 Quay # (Auto) 0.5 K/uL (0.4-2.0) 06/16/19 05:00 Eos # (Auto) 0.1 K/ul (0.0-0.7) 06/16/19 05:00 Baso # (Auto) 0.0 K/uL (0-0.2) 06/16/19 05:00 Sodium 138.0 mmol/L (134.5-145) 06/16/19 05:00 Potassium 3.05 mmol/L (3.5-5.1) L 06/16/19 05:00 Chloride 109.7 mmol/L (98-107) H 06/16/19 05:00 Carbon Dioxide 22.7 mmol/L (22-30.0) 06/16/19 05:00 Anion Gap 8.65 06/16/19 05:00 BUN 18.6 mg/dL (9-20) 06/16/19 05:00 Creatinine 0.83 mg/dL (0.60-1.10) 06/16/19 05:00 Estimated GFR (MDRD) 88.00 mL/min 06/16/19 05:00 BUN/Creatinine Ratio 22.40 06/16/19 05:00 Glucose 122.1 mg/dL (74-106) H 06/16/19 05:00 Hemoglobin A1c 5.91 (4.0-6.0) 06/14/19 13:25 Lactic Acid 2.88 mmol/L (0.7-2.1) H 06/14/19 13:25 Calcium 7.90 mg/dL (8.4-10.2) L 06/16/19 05:00 Total Bilirubin 0.56 mg/dL (0.2-1.3) 06/16/19 05:00 AST 59.0 U/L (17-59) 06/16/19 05:00 ALT 27.7 U/L (0-50) 06/16/19 05:00 Alkaline Phosphatase 78.2 U/L (56-119) 06/16/19 05:00 Total Protein 5.95 g/dL (6.3-8.2) L 06/16/19 05:00 Albumin 3.04 g/dL (3.5-5.0) L 06/16/19 05:00 Globulin 2.91 06/16/19 05:00 Albumin/Globulin Ratio 1.04 06/16/19 05:00 Procalcitonin 0.19 ng/mL (<0.05) 06/14/19 13:25 Urine Color Yellow (YELLOW) 06/14/19 13:30 Urine Clarity Clear (CLEAR) 06/14/19 13:30 Urine pH 5.0 (5-9) 06/14/19 13:30 Ur Specific [place] >=1.030 (1.005-1.030) 06/14/19 13:30 Urine Protein 2+ (NEGATIVE) 06/14/19 13:30 Urine Glucose (UA) Negative (NEGATIVE) 06/14/19 13:30 Urine Ketones Negative (NEGATIVE) 06/14/19 13:30 Urine Blood Negative (NEGATIVE) 06/14/19 13:30 Urine Nitrite Negative (NEGATIVE) 06/14/19 13:30 Urine Bilirubin Negative (NEGATIVE) 06/14/19 13:30 Urine Urobilinogen 0.2 (0.2) 06/14/19 13:30 Ur Leukocyte Esterase Negative (NEGATIVE) 06/14/19 13:30 Urine Microscopic WBC 0-2 (0-2) 06/14/19 13:30 Ur Squamous Epith Cells 5-10 (0-5) 06/14/19 13:30 Amorphous Sediment Trace (NOT PRESENT) 06/14/19 13:30 Urine Mucus 1+ (NOT PRESENT) 06/14/19 13:30 Na/K Trends 06/14/19 06/15/19 06/15/19 Range/Units 13:25 07:26 09:50 Sodium 145.4 H 147.4 H 147.0 H (134.5-145) mmol/L Potassium 3.91 4.09 4.14 (3.5-5.1) mmol/L 06/15/19 06/15/19 06/16/19 Range/Units 12:57 16:02 05:00 Sodium 145.1 H 146.0 H 138.0 (134.5-145) mmol/L Potassium 3.99 3.89 3.05 L (3.5-5.1) mmol/L WBC Trends 06/14/19 06/15/19 06/16/19 Range/Units 13:25 07:24 05:00 WBC 6.18 5.74 4.36 (4.2-10.2) K/ul H/H Trends 06/14/19 06/15/19 06/16/19 Range/Units 13:25 07:24 05:00 Hgb 14.4 13.2 L 11.3 L (14.0-18.0) g/dl Hct 45.3 41.8 L 34.4 L D (42.0-52.0) % (1) Metabolic encephalopathy Status: Acute Code(s): G93.41 - METABOLIC ENCEPHALOPATHY SNOMED Code(s): 88802046 (2) Hypernatremia Status: Resolved Code(s): E87.0 - HYPEROSMOLALITY AND HYPERNATREMIA SNOMED Code(s): 89224526 (3) Urinary tract infection Status: Acute Code(s): N39.0 - URINARY TRACT INFECTION, SITE NOT SPECIFIED SNOMED Code(s): 44038662 (4) Dehydration Status: Acute Code(s): E86.0 - DEHYDRATION SNOMED Code(s): 74472954 (5) Dementia Status: Acute Code(s): F03.90 - UNSPECIFIED DEMENTIA WITHOUT BEHAVIORAL DISTURBANCE SNOMED Code(s): 18479418 (6) Type 2 diabetes mellitus Status: Acute (7) Hypokalemia Status: Acute Code(s): E87.6 - HYPOKALEMIA SNOMED Code(s): 15218787 Plan: Assessment/Plan: Metabolic encephalopathy/Altered mental status: HD #3. Invanz day #3. Bedside swallow complete. Patient has dilutional effect on labs. He is awakening now and more interactive. Plan d/c tomorrow if he remains fever free today. Tele reviewed and stable. Labs dilutional. Cultures so far negative for urine and blood. - Continue Admit inpatient - Telemetry - CBC/CMP in am - BMP 1300 today - NPO until speech eval. - D5W 83 ml/hour - INvanz 1 gram IV x 7 days. (HD #3). - Tylenol [place] if temp >100.5. Hypernatremia: Resolved. Fluids to be changed to D51/2NS +20meq K+cl- - BMP 1300 today - CMP in am. Hypokalemia: change fluids to d5 1/2 NS + 20meq K+CL- and add 20meq K+cl- crushed with meal BID. Hyperglycemia: A1C normal. Monitor. DVT Prophy: Lovenox 40mg subut. NO e/o blood per rectum, we will continue to monitor. Chronic Alzheiemers Dementia: Improving back to Baseline status, plan d/c home with daughter. Sacral erythema: Roll patient, wound management, padding/calmoseptine as needed. Stable. Disposition: Remains unable to provide information. Disoriented, minimally communicative. Etiology remains unknown. Await cultures. Daughter not here during rounding. Mild hypernatremia corrected. Continue to monitor cultures. Patient seen at 7:45 this am. He passed the nursing swallow study. Daughter has fed the patient. He has not choked, no sputtering, no issues. Weight is stable, BMI is stable. Nursing to continue to help with transfers/cleaning. Today >35 minutes spent with patient .
[2019-06-16] MEDS: K-DUR PO SCH ×2 (08:45→17:31)
[2019-06-16] MEDS: INVANZ 1 GM in SODIUM CHLORIDE 50 ML IV SCH (08:45)
[2019-06-16] MEDS: LOVENOX SUBCUT SCH (08:46)
[2019-06-16] MEDS: D5%-1/2NS-KCL 20 MEQ/L IV SOL 1,000 ML IV SCH ×2 (08:48→20:50)
[2019-06-17] MEDS: INVANZ 1 GM in SODIUM CHLORIDE 50 ML IV SCH (09:10)
[2019-06-17] MEDS: LOVENOX SUBCUT SCH (09:12)
[2019-06-17] MEDS: K-DUR PO SCH ×2 (09:12→16:46)
--- NOTE | 2019-06-17 09:18 | PCM.PROG ---
Subjective: 83 yo HD #4. Invanz Day #4. Urine culture neg, blood culture neg. Chronic alzheimers. HE is markedly more awake. GCS now 13 E4, V3, M6. He was sitting up and had echolalia today repeating examiners words. Labs this am WBC, Hgb 11.0 RDSW 13.1, MCV 97.1. PLT 108. Chemistry panel showed sodium 137.9, K+ 4.27, Co2 108.8, creatinine is fine at 0.76. Glucose normalized at 115.2. Was up to 131.9 but he was on d5W. Calcium is still low but better and this corrects to normal when considering albumin of 3.20. Afebrile since 06/14/19 1800. 02 93-96. Telemetry remains stable with NSR. BP remains stable as well with 100-137/60-76. He has had 50% of lunch and 75% of dinner yesterday. Several voids7 yesterday and 4 documented this am. BM 4 in hospital, 1 today. He is more awake, more alert but still not able to answer questions. Talked with Lindsey garcía this am. There was concern over aspiration to liquids yesterday. Cannot get speech therapy to hospital until 06/18/19. Will await speech. Liquids thickened. He did well initially but worsened yesterday per nursing. NO edema, right contracture of right ankle, chronic. K+ is improved. He is tolerating food but decreased ability to manage water/secretions. Personally called daughter Adeola at her listed #9:45 as nursing noted that she would be here 9:30-10:00 to discuss care. I left to contact hospital. . ROS: I suspect back to baseline. Daughter not here today. Patient had no c/o today. Echolalia is present, some mumbling incoherent, will follow some commands. Now with GCS of E4,V2, M6 13 total. This is better than the 6 at admit and yesterday 12. He is awake, he is not oriented. NO obvious complaints. No rashes. Incontinent urine. Invanz Day 4 today. Objective: Vital Signs - 24 hr 06/16/19 06/16/19 06/16/19 10:52 14:00 22:00 Temperature 97.1 F L 98 F 99.2 F Pulse Rate 74 89 75 Respiratory 19 20 16 Rate Blood Pressure 100/60 118/72 O2 Sat by Pulse 94 L 93 L Oximetry 06/17/19 06/17/19 04:55 08:00 Temperature 98.3 F Pulse Rate 73 Respiratory 18 19 Rate Blood Pressure 118/60 O2 Sat by Pulse 96 Oximetry Constitutional: Appearance-No acute distress, Consistent with stated age. Eyes open Orientation- Remains disoriented x 3, but more awake than yesterday, markedly more alert than previously. Gait- bed bound. contractures of ankle internal rotation of ankles bilaterally, flexion at elbows. Build and Nutrition- [BMI 20] . GCS E4,v3,m6 total 13. Integumentary: General-No rashes, ulcers or lesions. Palpation- Normal skin moisture/turgor. Skin is warm to touch, appropriate. Capillary refill is normal bilateral Upper and lower extremity. Numerous lentigines along scalp. SK noted along head/neck as well. Small area of sacral erythema without skin breakdown. Eye: Opens eyes spontaneously. Equal and round. ENMT: TM left- Unable to visualize due to cerumen. TM Right- Partial visibility. [place]/pearly, normal light reflex and anatomy Hearing Assessment- Alzheimers, altered mental status unable to assess. Nares- bilateral quiet airflow, no discharge. Nasal mucosa- No bleeding noted and no ulcerations observed. [place], moist. Turbinates non boggy. Lips- normal color, moist without cracks/lesions Oral Cavity/Palate- hard/soft palate intact without lesions, oral mucosa pink and moist.Tongue normal midline. Oropharynx- no pharyngeal erythema, Uvula midline. No post nasal drip. No exudate. Salivary glands- Non tender to palpation CHEST/LUNG: . Auscultation- Breath sounds normal throughout all lung christian. Normal tracheal sounds, Normal bronchial sounds overlying sternum, Bronchovessicular sounds normal between scapulae posteriorly, Normal vessicular breath sounds heard throughout periphery. Lungs are clear today. Adventitious sounds- No wheezes, rales, rhonchi. Shallow inspiration, no obvious adventitious sounds. Would not follow instructions to breath deeply n/out. No e /o consolidation. CARDIOVASCULAR: Carotid artery- normal, no bruits or abnormal pulsations. Jugular vein- no pulsations. Palpation/Percussion- Normal PMI, no palpable thrill Auscultation- Distant heart sounds. Regular rate and rhythm. No murmur noted in sitting, supine positions. Extremities- no digital clubbing, cyanosis, edema , increased warmth. ABDOMEN: Inspection- normal and no visible pulsations. Normal contour. round abdomen. Auscultation- Bowel sounds normal, no abdominal bruits. Palpation/ Percussion- soft, non-tender, no rebound tenderness, no rigidity (guarding), no jar tenderness, no masses. Liver-no appreciable hepatomegaly, Rectal not examined. He was not having any pain/irritation to examination. No grimmace to palpation shallow or deep. Adult diaper. Normal appearing penis. Normal appearing testicles/scrotum, no obvious swelling. Peripheral Vascular: Upper extremity Left- Normal temperature with pink nailbeds and no ulcerations. Upper extremity Right- Normal temperature with pink nailbeds and no ulcerations. IV site c/d/i. Lower extremity- Normal temperature with pink nailbeds and no ulcerations. DP pulses 1+ bilaterally. Pedal hair reduced. Musculoskeletal: Generalized-No generalized swelling or edema of extremities, no digital clubbing or cyanosis, neurovascularly intact all four extremities. Upper extremity- Symmetrical posture. No visible deformity. NO grimmace to palpation overlying shoulder, lateral/medial epicondyle. Flexion at elbows. No skin breakdown. would not appeals officer examiner hand. Elbow palpated, no visible deformity. No obvious tenderness overlying olecranon. He gripped hands to command today. Lower extremity- tight hamstring/quad. Would not move extremities. No edema. He has contracture of ankles with inversion. No skin breakdown. DP pulses 1+. would not flex/extend hips/knees. Neurological: GCS Total 13. Echolalia is new today, was not doing that yesterday. Negative Babinski (down-gowing). Unable to assess CN as he will not follow commands well. Known alzheimers, Face is symmetrical and normal sensation/movement. Neuropsych: Disoriented- x3 to Person, place, time. Mood/affect- Incoherent. Awake, followed examiner with eyes. Echolalia today Speech- mostly incoherent speech. abnormal use of language Thought content- abnormal, inability to perform basic computations. Associations- unable to assss. Judgment/insight- unable to assess. Memory- unable to assess Knowledge- unable to assess Laboratory Last Values WBC 5.43 K/ul (4.2-10.2) 06/17/19 04:45 RBC 3.48 10^6/ul (4.70-6.10) L 06/17/19 04:45 Hgb 11.0 g/dl (14.0-18.0) L 06/17/19 04:45 Hct 33.8 % (42.0-52.0) L 06/17/19 04:45 MCV 97.1 fl (80.0-94.0) H 06/17/19 04:45 MCH 31.6 pg (27.0-31.0) H 06/17/19 04:45 MCHC 32.5 (31.8-35.4) 06/17/19 04:45 RDW Coeff of [place]pe 13.1 % (11.6-14.8) 06/17/19 04:45 Plt Count 108 10^3/uL (140-440) L 06/17/19 04:45 Immature Gran % (Auto) 0.4 % (0.0-5.0) 06/17/19 04:45 Neut % (Auto) 49.9 06/17/19 04:45 Lymph % (Auto) 37.2 (10.0-50.0) 06/17/19 04:45 Weld % (Auto) 9.0 (0-10) 06/17/19 04:45 Eos % (Auto) 3.3 % (0.0-7.0) 06/17/19 04:45 Baso % (Auto) 0.2 % (0.0-3.0) 06/17/19 04:45 Immature Gran # (Auto) 0.0 (0.0-1.0) 06/17/19 04:45 Neut # (Auto) 2.7 K/ul (2.0-6.9) 06/17/19 04:45 Lymph # (Auto) 2.0 K/uL (0.60-3.4) 06/17/19 04:45 Weld # (Auto) 0.5 K/uL (0.4-2.0) 06/17/19 04:45 Eos # (Auto) 0.2 K/ul (0.0-0.7) 06/17/19 04:45 Baso # (Auto) 0.0 K/uL (0-0.2) 06/17/19 04:45 Sodium 137.9 mmol/L (134.5-145) 06/17/19 04:45 Potassium 4.27 mmol/L (3.5-5.1) 06/17/19 04:45 Chloride 109.8 mmol/L (98-107) H 06/17/19 04:45 Carbon Dioxide 23.9 mmol/L (22-30.0) 06/17/19 04:45 Anion Gap 8.47 06/17/19 04:45 BUN 12.1 mg/dL (9-20) 06/17/19 04:45 Creatinine 0.76 mg/dL (0.60-1.10) 06/17/19 04:45 Estimated GFR (MDRD) 97.00 mL/min 06/17/19 04:45 BUN/Creatinine Ratio 15.92 06/17/19 04:45 Glucose 115.2 mg/dL (74-106) H 06/17/19 04:45 Hemoglobin A1c 5.91 (4.0-6.0) 06/14/19 13:25 Lactic Acid 2.88 mmol/L (0.7-2.1) H 06/14/19 13:25 Calcium 8.28 mg/dL (8.4-10.2) L 06/17/19 04:45 Total Bilirubin 0.65 mg/dL (0.2-1.3) 06/17/19 04:45 AST 58.2 U/L (17-59) 06/17/19 04:45 ALT 27.0 U/L (0-50) 06/17/19 04:45 Alkaline Phosphatase 83.2 U/L (56-119) 06/17/19 04:45 Total Protein 6.22 g/dL (6.3-8.2) L 06/17/19 04:45 Albumin 3.20 g/dL (3.5-5.0) L 06/17/19 04:45 Globulin 3.02 06/17/19 04:45 Albumin/Globulin Ratio 1.05 06/17/19 04:45 Procalcitonin 0.19 ng/mL (<0.05) 06/14/19 13:25 Urine Color Yellow (YELLOW) 06/14/19 13:30 Urine Clarity Clear (CLEAR) 06/14/19 13:30 Urine pH 5.0 (5-9) 06/14/19 13:30 Ur Specific [place] >=1.030 (1.005-1.030) 06/14/19 13:30 Urine Protein 2+ (NEGATIVE) 06/14/19 13:30 Urine Glucose (UA) Negative (NEGATIVE) 06/14/19 13:30 Urine Ketones Negative (NEGATIVE) 06/14/19 13:30 Urine Blood Negative (NEGATIVE) 06/14/19 13:30 Urine Nitrite Negative (NEGATIVE) 06/14/19 13:30 Urine Bilirubin Negative (NEGATIVE) 06/14/19 13:30 Urine Urobilinogen 0.2 (0.2) 06/14/19 13:30 Ur Leukocyte Esterase Negative (NEGATIVE) 06/14/19 13:30 Urine Microscopic WBC 0-2 (0-2) 06/14/19 13:30 Ur Squamous Epith Cells 5-10 (0-5) 06/14/19 13:30 Amorphous Sediment Trace (NOT PRESENT) 06/14/19 13:30 Urine Mucus 1+ (NOT PRESENT) 06/14/19 13:30 Na/K Trends 06/14/19 06/15/19 06/15/19 Range/Units 13:25 07:26 09:50 Sodium 145.4 H 147.4 H 147.0 H (134.5-145) mmol/L Potassium 3.91 4.09 4.14 (3.5-5.1) mmol/L 06/15/19 06/15/19 06/16/19 Range/Units 12:57 16:02 05:00 Sodium 145.1 H 146.0 H 138.0 (134.5-145) mmol/L Potassium 3.99 3.89 3.05 L (3.5-5.1) mmol/L 06/16/19 06/17/19 Range/Units 13:02 04:45 Sodium 137.9 137.9 (134.5-145) mmol/L Potassium 3.44 L 4.27 (3.5-5.1) mmol/L H/H Trends 06/14/19 06/15/19 06/16/19 Range/Units 13:25 07:24 05:00 Hgb 14.4 13.2 L 11.3 L (14.0-18.0) g/dl Hct 45.3 41.8 L 34.4 L D (42.0-52.0) % 06/17/19 Range/Units 04:45 Hgb 11.0 L (14.0-18.0) g/dl Hct 33.8 L (42.0-52.0) % Culture Urine: Negative CUlture blood: negative. (1) Metabolic encephalopathy Status: Acute Code(s): G93.41 - METABOLIC ENCEPHALOPATHY SNOMED Code(s): 84937995 (2) Hypernatremia Status: Resolved Code(s): E87.0 - HYPEROSMOLALITY AND HYPERNATREMIA SNOMED Code(s): 71436832 (3) Urinary tract infection Status: Acute Code(s): N39.0 - URINARY TRACT INFECTION, SITE NOT SPECIFIED SNOMED Code(s): 60817999 (4) Dehydration Status: Acute Code(s): E86.0 - DEHYDRATION SNOMED Code(s): 28445535 (5) Dementia Status: Acute Code(s): F03.90 - UNSPECIFIED DEMENTIA WITHOUT BEHAVIORAL DISTURBANCE SNOMED Code(s): 27536933 (6) Type 2 diabetes mellitus Status: Acute (7) Hypokalemia Status: Acute Code(s): E87.6 - HYPOKALEMIA SNOMED Code(s): 69315553 Plan: Assessment/Plan: Metabolic encephalopathy/Altered mental status: HD #4. Invanz day #4. Bedside nursing swallow completed again yesterday and choking with liquids. Daughter informed nuvy that she wants swallow eval by speech. We cannot get them to hospital until 06/18/19. I will keep patient one more day to make sure no issues. He will be able to complete invanz 5 days, and I will d/c abx at that time with negative urine culture and return to baseline cognition. Daughter is not interested in hospice,not interested in assisted living or SNF/LNF. I will saline lock fluids. Continue oral K+ repletion. Labs tomorrow cbc/cmp. He is now more awaken and more interactive. Plan d/c tomorrow once we can get speech therapy to see him. Daughter wants to take patient home. Tele reviewed and stable. Cultures so far negative for urine and blood. - Continue Admit inpatient - Telemetry - CBC/CMP in am - saline lock - INvanz 1 gram IV x 5 days. (HD #4). - Tylenol [place] if temp >100.5. Hypernatremia: Resolved. Fluids to be saline locked now. - CMP in am. Hypokalemia: Saline lock. Continue 20meq K+cl- PO crushed with meal BID. - CMP in am - K+ CL- 20meq BID with meals. Hyperglycemia: A1C normal. Monitor. DVT Prophy: Lovenox 40mg subut. NO e/o blood per rectum, we will continue to monitor. Chronic Alzheiemers Dementia: Improving back to Baseline status, plan d/c home with daughter. Sacral erythema: Roll patient, wound management, padding/calmoseptine as needed. Stable. Disposition: Remains unable to provide information. Daughter not here. I was present until 12:00 yesterday and was unable to talk with her. Today in hospital from 7:30-10:15 and unable to meet up with her. Contacted her via phone and left VM. He remains disoriented, minimally communicative. New echolalia. I suspect Etiology remains unknown. Await cultures. Daughter not here during rounding. Mild hypernatremia corrected. Continue to monitor cultures. Patient seen at 7:30 this am. He passed the nursing swallow study initially but they had to use nectar thick liquids yesterday. Tolerating food okay. I want speech eval on him but we cannot get this until tomorrow 06/18. I will keep him one more day to make sure cognition improves, to finish 5 day course of invanz. NO e/o consolidation, no fever, WBC is normal. He is breathing okay, vitals okay and tele okay. At this time d/c tomorrow once we have speech therapy suggestions. Would like home health at discharge. Weight is stable, BMI is stable. Nursing to continue to help with transfers/cleaning. Today >25 minutes spent with patient .
[2019-06-17] MEDS: D5%-1/2NS-KCL 20 MEQ/L IV SOL 1,000 ML IV SCH (11:21)
[2019-06-18 04:58] VITALS: BP 137/72; TEMP 98.6
--- NOTE | 2019-06-18 07:33 | PCM.DC ---
Final Diagnosis: Dehydration (Acute): Resolved. Dementia (Chronic)/Alzheimers Hypokalemia (Acute): RESOLVED Metabolic encephalopathy (Acute): RESOLVED Sepsis (Acute): RESOLVED (NO KNOWN SOURCE) Type 2 diabetes mellitus (Acute): Chronic, A1C stable, not on meds. Urinary tract infection (Acute): RESOLVED, culture negative. Completed 5 days of invanz abx. HYPERNATREMIA (ACUTE): RESOLVED (1) Metabolic encephalopathy Status: Resolved Code(s): G93.41 - METABOLIC ENCEPHALOPATHY SNOMED Code(s): 90876148 (2) Hypernatremia Status: Resolved Code(s): E87.0 - HYPEROSMOLALITY AND HYPERNATREMIA SNOMED Code(s): 50420455 (3) Urinary tract infection Status: Resolved Code(s): N39.0 - URINARY TRACT INFECTION, SITE NOT SPECIFIED SNOMED Code(s): 45076317 (4) Dehydration Status: Resolved Code(s): E86.0 - DEHYDRATION SNOMED Code(s): 26811236 (5) Dementia Status: Chronic Code(s): F03.90 - UNSPECIFIED DEMENTIA WITHOUT BEHAVIORAL DISTURBANCE SNOMED Code(s): 90718308 (6) Type 2 diabetes mellitus Status: Chronic (7) Hypokalemia Status: Resolved Code(s): E87.6 - HYPOKALEMIA SNOMED Code(s): 76636735 Reason for Hospitalization: Altered mental status acute on chronic. Concern for dehydration, hypernatremia, UTI, sepsis, obtunded status. Prognosis at Discharge: Chronic/guarded. Concern for worsening of alzheimers/mental status. Patient is followed by daughter. Not interested in hospice, assisted living, custodial at this time. Condition at Discharge: Improved, echolalia, chronicly confused. Medications at Discharge: Ambulatory Orders Medication Instructions Recorded 1 [No Reported Medications] 06/14/19 Lab/Diagnostics: Laboratory Last Values WBC 6.94 K/ul (4.2-10.2) 06/18/19 04:25 RBC 3.79 10^6/ul (4.70-6.10) L 06/18/19 04:25 Hgb 12.1 g/dl (14.0-18.0) L 06/18/19 04:25 Hct 36.4 % (42.0-52.0) L 06/18/19 04:25 MCV 96.0 fl (80.0-94.0) H 06/18/19 04:25 MCH 31.9 pg (27.0-31.0) H 06/18/19 04:25 MCHC 33.2 (31.8-35.4) 06/18/19 04:25 RDW Coeff of Chepe 12.8 % (11.6-14.8) 06/18/19 04:25 Plt Count 132 10^3/uL (140-440) L 06/18/19 04:25 Immature Gran % (Auto) 0.6 % (0.0-5.0) 06/18/19 04:25 Neut % (Auto) 55.4 06/18/19 04:25 Lymph % (Auto) 34.0 (10.0-50.0) 06/18/19 04:25 [place] % (Auto) 6.9 (0-10) 06/18/19 04:25 Eos % (Auto) 3.0 % (0.0-7.0) 06/18/19 04:25 Baso % (Auto) 0.1 % (0.0-3.0) 06/18/19 04:25 Immature Gran # (Auto) 0.0 (0.0-1.0) 06/18/19 04:25 Neut # (Auto) 3.8 K/ul (2.0-6.9) 06/18/19 04:25 Lymph # (Auto) 2.4 K/uL (0.60-3.4) 06/18/19 04:25 [place] # (Auto) 0.5 K/uL (0.4-2.0) 06/18/19 04:25 Eos # (Auto) 0.2 K/ul (0.0-0.7) 06/18/19 04:25 Baso # (Auto) 0.0 K/uL (0-0.2) 06/18/19 04:25 Sodium 137.6 mmol/L (134.5-145) 06/18/19 04:25 Potassium 4.41 mmol/L (3.5-5.1) 06/18/19 04:25 Chloride 107.1 mmol/L (98-107) H 06/18/19 04:25 Carbon Dioxide 25.1 mmol/L (22-30.0) 06/18/19 04:25 Anion Gap 9.81 06/18/19 04:25 BUN 10.7 mg/dL (9-20) 06/18/19 04:25 Creatinine 0.77 mg/dL (0.60-1.10) 06/18/19 04:25 Estimated GFR (MDRD) 96.00 mL/min 06/18/19 04:25 BUN/Creatinine Ratio 13.89 06/18/19 04:25 Glucose 101.6 mg/dL (74-106) 06/18/19 04:25 Hemoglobin A1c 5.91 (4.0-6.0) 06/14/19 13:25 Lactic Acid 2.88 mmol/L (0.7-2.1) H 06/14/19 13:25 Calcium 8.67 mg/dL (8.4-10.2) 06/18/19 04:25 Total Bilirubin 0.87 mg/dL (0.2-1.3) 06/18/19 04:25 AST 71.4 U/L (17-59) H 06/18/19 04:25 ALT 33.0 U/L (0-50) 06/18/19 04:25 Alkaline Phosphatase 111.0 U/L (56-119) D 06/18/19 04:25 Total Protein 6.80 g/dL (6.3-8.2) 06/18/19 04:25 Albumin 3.59 g/dL (3.5-5.0) 06/18/19 04:25 Globulin 3.21 06/18/19 04:25 Albumin/Globulin Ratio 1.11 06/18/19 04:25 Procalcitonin 0.19 ng/mL (<0.05) 06/14/19 13:25 Urine Color Yellow (YELLOW) 06/14/19 13:30 Urine Clarity Clear (CLEAR) 06/14/19 13:30 Urine pH 5.0 (5-9) 06/14/19 13:30 Ur Specific [place] >=1.030 (1.005-1.030) 06/14/19 13:30 Urine Protein 2+ (NEGATIVE) 06/14/19 13:30 Urine Glucose (UA) Negative (NEGATIVE) 06/14/19 13:30 Urine Ketones Negative (NEGATIVE) 06/14/19 13:30 Urine Blood Negative (NEGATIVE) 06/14/19 13:30 Urine Nitrite Negative (NEGATIVE) 06/14/19 13:30 Urine Bilirubin Negative (NEGATIVE) 06/14/19 13:30 Urine Urobilinogen 0.2 (0.2) 06/14/19 13:30 Ur Leukocyte Esterase Negative (NEGATIVE) 06/14/19 13:30 Urine Microscopic WBC 0-2 (0-2) 06/14/19 13:30 Ur Squamous Epith Cells 5-10 (0-5) 06/14/19 13:30 Amorphous Sediment Trace (NOT PRESENT) 06/14/19 13:30 Urine Mucus 1+ (NOT PRESENT) 06/14/19 13:30 Na/K Trends 06/14/19 06/15/19 06/15/19 Range/Units 13:25 07:26 09:50 Sodium 145.4 H 147.4 H 147.0 H (134.5-145) mmol/L Potassium 3.91 4.09 4.14 (3.5-5.1) mmol/L 06/15/19 06/15/19 06/16/19 Range/Units 12:57 16:02 05:00 Sodium 145.1 H 146.0 H 138.0 (134.5-145) mmol/L Potassium 3.99 3.89 3.05 L (3.5-5.1) mmol/L 06/16/19 06/17/19 06/18/19 Range/Units 13:02 04:45 04:25 Sodium 137.9 137.9 137.6 (134.5-145) mmol/L Potassium 3.44 L 4.27 4.41 (3.5-5.1) mmol/L H/H Trends 06/14/19 06/15/19 06/16/19 Range/Units 13:25 07:24 05:00 Hgb 14.4 13.2 L 11.3 L (14.0-18.0) g/dl Hct 45.3 41.8 L 34.4 L D (42.0-52.0) % 06/17/19 06/18/19 Range/Units 04:45 04:25 Hgb 11.0 L 12.1 L (14.0-18.0) g/dl Hct 33.8 L 36.4 L (42.0-52.0) % WBC Trends 06/14/19 06/15/19 06/16/19 Range/Units 13:25 07:24 05:00 WBC 6.18 5.74 4.36 (4.2-10.2) K/ul 06/17/19 06/18/19 Range/Units 04:45 04:25 WBC 5.43 6.94 (4.2-10.2) K/ul CXR: negative. 06/14/[address] no e/o acute process, atrophy and chronic small vessel changes. NO significant change in ventriculomegaly. 06/14/19: Abd pelvis CT large stool in colon, constipation/fecal stasis. Cholelithiasis, chronic t12 compression fracture. Age indeterminate L1 compression fracture. Blood culture: Negative x 4 days Urine culture: nEgative Education Provided to Patient and Family: 1. Patient needs speech therapy evaluation. 2. Discussed concerns regarding end stage Alzheimers. Follow-ups: 1. Dr. Wayne in 1 week 2. Speech consult this week to evaluate diet. Disposition: HOME SELF-CARE Hospital Course: 83 yr old male presented to ED 06/14/19 at 12:40 with daughter noting that father recently completed course of abx for UTI from left over amoxil from ~2018 that is exired. Am of admit temp noted to be 101.6. Decreased responsiveness and acting to daughter as if infection was worsening. Vitals in ER temp 98.1, pulse 93, rr 18, bp 125/73, pulse ox 96% on RA. WBC noted to be 6.18, hgb 14.4, plt 140, MCV was elevate at 101.6 but no anemia. Chemistry showed minimally elevated sodium 145.4, cl 110.5, BUN 26.9 elevated and Cr okay at 1.0 with GFR 71. Glucose elevated at 191.2 non fasting. Lactic acid 2.88 and procalcitonin 0.19. Calcium noted at 9.23, AST 52, alt 29, albumin 4.25. Urine showed clear yellow color pH 5.0 with SG 1.030. Neg gl, ket, blood, nit, bili, urobili, micro WBC 0-2, ur squam 5-10, trace amorphous sediment and mucus. Based on presentation he did not meet SIRS/Sepsis criteria but his lactate was elevated. complain present with lethargy, suprapubic pain. Patient was non verbal in ED, minimally responsive in ED. ?H/o Seizure. History of enlarged prostate, history of shingles. Patient noted by ED to be ill appearing and no other findings on examination. CXR today negative. I talked with ED and patient had blood cultures ordered. They gave rocephin in ED. I will change this to invanz. I will get records on recent antibiotic use, I will order CT of head as well as CT of abd/pelvis with contrast. Fluids started in ED 1000ml NS 500 ml/hr bolus. I was called at 14:40 and patient seen 16:10 in room 122. Reviewed outpatient chart. Patient last OV with me was 01/2019. History of BPH, urinary issues, URTI , Onychomycosism b12 deficiency, alzheimers. History from daughter. Patient has alzheimers and is confused. He is DNR. Afebrile in hospital. Daughter provided all history noted she thinks he is dehydrated as he acts like this ( worse) when dehydrated. Per ER nurse note patient took 7 day of abx. Disoriented x3, rigid. Per daughter he has had symptoms for past 1 week. Daughter noted that Dr. Vasquez gave him extra abx, 2 days was better, then he was running fever again. Per daughter used amoxil 500, which was an old rx from Dr. Vasquez that they had lying around. These 04/26/18 per daughter. He was using these BID, he has had to consume these via crush. daughter feels that abdomen looks swollen. He only goes from bed to chair. Daughter noted once per year over last 4 years had to go into hospital, abx and saline drip, his mental status comes back will open mouth to food. He does not understand anything normally. Daughter wants to bring back home with hospice if needed. Daughter will be back around 5pm. Radiology talked with daughter to get consent for this treatment for CT of head and abd/pelvis. Discussed with her to not use extra abx, to finish course of treatment. Daughter is aware of father deterioration and that his mental status is problematic/ worsened. patient unable to provide history. Daughter arrived 17:15 after patient back from radiology. CT head w/o and CT abd/pelvis with and without. I froilanve ordered invanz until urine culture/blood culture. ns 100 ml/hr overnight. npo until speech eval. Per daughter ice cream and cake last night. No choking if he is completely upright. He has been like this confused and non responsive. She notes that if it is cold near his lips he will open, if warm he will not. He is not choking per patient daughter. he had surgery on right foot. he has had contracture a long time. 3 days ago talking with daughter. She notes he has not been making words for a long time. When this clears up he will pop back out of it. No diarrhea. Constipation chronically. He is not on medications. daughter notes that she has had this same process 1x per year for last 4 years. He is being treated for UTI. He ate last night. She is not ready for hospice. Daughter agrees with this assessment that they are close but not willing to talk to them left. She notes if he is sitting at 90 degrees he can swallow. I noted that while he is having worsening altered status we do not want to feed him. Discussed altered mental status. I am concerned with feeding him. Discussed overnight monitoring. No history of CHF. has ANDREW. Daughter states do not let him lay flat. Hospital day #2/Invanz Day 2 with altered mental status, recent urinary symptoms self treated by daughter with amoxicillin. Patient was non verbal at admit, known chronic worsening alzheimers. Daughter provided history and noted father worsening. Reviewed overnight nursing notes 1946 temp 102.5 given rectal tylenol. Tele in place. no pedal edema, respiratory system unlabored, no cough, no URI, Abd soft, non tender, BS active x 4. UA sent to lab for cx. No s/sx of pain but will grimace and avoid pain. Mild redness to coccyx noted but no open area. Temp dropped to 99.1 by 21:31. Afebrile 06:18 x 2. Open eyes to name, will say a few words. Incomprehensible. No s/sx of pain per 06:20 note. He was febrile on 1 check 06/14/19 1800 at 102.5 else 98.2- 99.2. BP was fine up until 02:00 06/15/19 and he had mild elevated BP at 150/65. Else normal BP. Reviewed telemetry and normal sinus rhythm. RR 16-20 and stable. O2 remains 93-98% on room air. BM x 1, Void x 3. Incontinent. A1C returned 5.91. Labs this am were pending at time of note. Head CT returned after visit 06/14/19 and showed no e/o acute process, atrophy/chronic small vessel changes and moderate ventriculomegaly unchanged from previous evaluations. Abd/pelvis CT large amount of stool suggesting fecal stasis. Large amount within rectum ?impaction. Recommended disempaction. (BM post imaging) Cholelithiasis. Chronic t12 compression fracture age indeterminate. I talked with case management/nursing. No speech therapy is available until after . Daughter noted yesterday that she has been crushing meds and giving in pudding for a while and he will open to cold. I talked with nursing this am and they are able to do a nursing progressive swallow eval to order a speech eval. I will see if patient does okay with their screening first. Await CBC/ CMP. Await arrival of daughter to discuss care. So far neg Head CT, no obvious issues on ct abd/pelvis. Fever x 1. Urinary culture pending, blood culture pending. Chronic dementia,unknown baseline to examiner. CMP available 07:26 sodium increased from 145.4 to 147.4. He has acute hypernatremia. I will add d5W to his fluids for the next 8-10 hours to see how his sodium drops. We will monitor q 2-3 hour bmp until sodium back into 140 range. Goal no more than 10meq decrease in 24 hours. Glucose 113.6. As noted above a1c is fine. Remainder of CMP looks okay, creatinine 0.97. HD #3, INvanz abx day #3. Labs showed prominent dilutional effect with wbc 4.36 , hgb 11.3, plt 103. Chem panel sodium 138, K+ down to 3.05, glucose stable at 122.1. Creatinine 0.83 and stable. Calcium listed at 7.90. Calcium corrected to 8.7 with albumin of 3.04. I will resume D51/2NS+20meq of K at 75ml/hr maintenance. Repeat BMP 1300 today. Will also have them give oral K+ crushed with meals BID. BC negative x 48 hours. Urine culture also negative from cath specimen. He has not had any fever since 06/14/19 21:33. Last recorded abnl temp was 102.5 at 1800 06/14/19. He did have a 99.8 at 02:00 on 06/16/19. He remains in NSR via telemetry. O2 saturation 95-97 on RA. Reviewed I+O data. Patient is incontinent. Has had 2 total BM in hospital. Several voids. He ate 25% of his dinner. Reviewed nursing notes 06/15/19 nursing d/w daughter about need to roll for decub. Daughter not happy with NPO status. Patient nursing bedside swallow at 12:49, more alert, eyes open, attempted to follow instructions, difficult due to alzheimers. Swallowed water w/o issues. Mechanical soft diet ordered. Tolerated mechanical soft diet. Regular thin liquids w/o difficulty. Per nursing 06/15/19 21:05 he was alert/oriented. Feeding better able to communicate clearly. No new imaging today. Discussed case with am nurse and reviewed tele personally. HD #4. Invanz Day #4. Urine culture neg, blood culture neg. Chronic alzheimers. HE is markedly more awake. GCS now 13 E4, V3, M6. He was sitting up and had echolalia today repeating examiners words. Labs this am WBC, Hgb 11.0 RDSW 13.1, MCV 97.1. PLT 108. Chemistry panel showed sodium 137.9, K+ 4.27, Co2 108.8, creatinine is fine at 0.76. Glucose normalized at 115.2. Was up to 131.9 but he was on d5W. Calcium is still low but better and this corrects to normal when considering albumin of 3.20. Afebrile since 06/14/19 1800. 02 93-96. Telemetry remains stable with NSR. BP remains stable as well with 100-137/60-76. He has had 50% of lunch and 75% of dinner yesterday. Several voids7 yesterday and 4 documented this am. BM 4 in hospital, 1 today. He is more awake, more alert but still not able to answer questions. Talked with Lindsey garcía this am. There was concern over aspiration to liquids yesterday. Cannot get speech therapy to hospital until 06/18/19. Will await speech. Liquids thickened. He did well initially but worsened yesterday per nursing. NO edema, right contracture of right ankle, chronic. K+ is improved. He is tolerating food but decreased ability to manage water/secretions. Personally called daughter Adeola at her listed #9:45 as nursing noted that she would be here 9:30-10:00 to discuss care. I left VM to contact hospital. HD #5 06/18/19 Invanz Day 02/11. Plan to d/c today. Labs this am CMP unremarkable except mild elevation of AST at 71.4. Else within acceptable range. He had pseudohypocalcemia that corrected due to low albumin. This am calcium normal 8.67. Hgb increased to 12.1. WBC 6.94. PLT 132 up from 108. At this time no lab abnl to keep patient in hospital. Cultures negative. Vitals BP stable, afebrile >48 hours. TEle showed NSR. I+O incontinent. He has had 25-75% of meals. Weight is stable. Good output. Nursing notes reviewed. COntnue to roll patient. Sacral sore is stable. He had this when he came to us and we worked to keep it stable/improved. Day of D/C examination: Vital Signs - 24 hr 06/17/19 06/17/19 06/17/19 08:00 14:00 22:00 Temperature 98 F 99.2 F Pulse Rate 88 73 Respiratory 19 18 18 Rate Blood Pressure 121/71 149/84 H O2 Sat by Pulse 96 100 Oximetry 06/18/19 04:57 Temperature 98.6 F Pulse Rate 62 Respiratory 18 Rate Blood Pressure 137/72 O2 Sat by Pulse 92 L Oximetry Constitutional: Appearance-No acute distress, Consistent with stated age. Eyes open spontaneously. Orientation- Remains disoriented x 3, but more awake than yesterday, markedly more alert than previously. Gait- bed bound. contractures of ankle internal rotation of ankles bilaterally, flexion at elbows. Build and Nutrition-[BMI 20] . GCS E4,v3,m6 total 13. Integumentary: General-No rashes, ulcers or lesions. Palpation- Normal skin moisture/turgor. Skin is warm to touch, appropriate. Capillary refill is normal bilateral Upper and lower extremity. Numerous lentigines along scalp. SK noted along head/neck as well. Small area of sacral erythema without skin breakdown. This is bluish, blanches, not yet eroded. We have done a good job to keep this from worsening. Eye: Opens eyes spontaneously. Equal and round. ENMT: TM left- Unable to visualize due to cerumen. TM Right- Partial visibility. Macias/pearly, normal light reflex and anatomy Hearing Assessment- Alzheimers, altered mental status unable to assess. Nares- bilateral quiet airflow, no discharge. Nasal mucosa- No bleeding noted and no ulcerations observed. [place], moist. Turbinates non boggy. Lips- normal color, moist without cracks/lesions Oral Cavity/Palate- hard/soft palate intact without lesions, oral mucosa pink and moist.Tongue normal midline. Oropharynx- no pharyngeal erythema, Uvula midline. No post nasal drip. No exudate. Salivary glands- Non tender to palpation CHEST/LUNG: . Auscultation- Breath sounds normal throughout all lung christian. Normal tracheal sounds, Normal bronchial sounds overlying sternum, Bronchovessicular sounds normal between scapulae posteriorly, Normal vessicular breath sounds heard throughout periphery. Lungs are clear today. Adventitious sounds- No wheezes, rales, rhonchi. Shallow inspiration, no obvious adventitious sounds. Would not follow instructions to breath deeply n/out. No e /o consolidation. CARDIOVASCULAR: Carotid artery- normal, no bruits or abnormal pulsations. Jugular vein- no pulsations. Palpation/Percussion- Normal PMI, no palpable thrill Auscultation- Distant heart sounds. Regular rate and rhythm. No murmur noted in sitting, supine positions. Extremities- no digital clubbing, cyanosis, edema , increased warmth. ABDOMEN: Inspection- normal and no visible pulsations. Normal contour. round abdomen. Auscultation- Bowel sounds normal, no abdominal bruits. Palpation/ Percussion- soft, non-tender, no rebound tenderness, no rigidity (guarding), no jar tenderness, no masses. Liver-no appreciable hepatomegaly, Rectal not examined. He was not having any pain/irritation to examination. No grimmace to palpation shallow or deep. Adult diaper. Normal appearing penis. Normal appearing testicles/scrotum, no obvious swelling. Peripheral Vascular: Upper extremity Left- Normal temperature with pink nailbeds and no ulcerations. Upper extremity Right- Normal temperature with pink nailbeds and no ulcerations. IV site c/d/i. Lower extremity- Normal temperature with pink nailbeds and no ulcerations. DP pulses 1+ bilaterally. Pedal hair reduced. Musculoskeletal: Generalized-No generalized swelling or edema of extremities, no digital clubbing or cyanosis, neurovascularly intact all four extremities. Upper extremity- Symmetrical posture. No visible deformity. NO grimmace to palpation overlying shoulder, lateral/medial epicondyle. Flexion at elbows. No skin breakdown. would not charge account identification clerk examiner hand. Elbow palpated, no visible deformity. No obvious tenderness overlying olecranon. He gripped hands to command today. Lower extremity- tight hamstring/quad. Would not move extremities. No edema. He has contracture of ankles with inversion. No skin breakdown. DP pulses 1+. would not flex/extend hips/knees. Neurological: GCS Total 13. Echolalia is new today, was not doing that yesterday. Negative Babinski (down-gowing). Unable to assess CN as he will not follow commands well. Known alzheimers, Face is symmetrical and normal sensation/movement. Neuropsych: Disoriented- x3 to Person, place, time. Mood/affect- Incoherent. Awake, followed examiner with eyes. Echolalia again today Speech- mostly incoherent speech. abnormal use of language Thought content- abnormal, inability to perform basic computations. Associations- unable to assss. Judgment/insight- unable to assess. Memory- unable to assess Knowledge- unable to assess Plan: 1. Activity: Up with assist. 2. Diet: [place] thick. - Outpatient speech therapy evaluation for advice on diet 3. Hospital meds to be d/c. 4. Abx: Will complete 5 days of invanz. With negative culture of blood/urine and return to normal cognition, no further abx warranted. 5. Discussed chronic alzheimers and concerns for worsening dementia. 6. F/U with clinic in 1 week. 7. Return to ED or f/u as needed for worsening/new symptoms. >30 minutes spent this am on discharge.
[2019-06-18] MEDS: INVANZ 1 GM in SODIUM CHLORIDE 50 ML IV SCH (08:57)
[2019-06-18] MEDS: LOVENOX SUBCUT SCH (08:57)
[2019-06-18] MEDS: K-DUR PO SCH (08:57)
== END 2019-06-18 13:06 | disposition home or self-care (01) | DRG 871 ==
LOC: ED 12:14 → MEDSURG B 14:20
PROVIDERS: ADMIT Family Medicine; ATTEND Family Medicine
DX: A41.9 Sepsis, unspecified organism (principal); G93.41 Metabolic encephalopathy; N39.0 Urinary tract infection, site not specified; E87.0 Hyperosmolality and hypernatremia; E86.0 Dehydration; E11.9 Type 2 diabetes mellitus without complications; E87.6 Hypokalemia; R50.9 Fever, unspecified; R53.83 Other fatigue; F03.90 Unspecified dementia, unspecified severity, without behavioral disturbance, psychotic disturbance, mood disturbance, and anxiety
CPT/HCPCS: 36415; 80048; 80053; 81001; 83036; 83605; 84145; 85025; 87040; 87086; 99284

== ENCOUNTER 2019-06-18 13:03 | Outpatient (CLI) | END 2019-06-18 13:10 | disposition home or self-care (01) | LOC: AMBL 13:03 | PROVIDERS: ATTEND Internal Medicine | DX: Z74.01 Bed confinement status (principal); R40.2421 Glasgow coma scale score 9-12, in the field [EMT or ambulance]; F03.90 Unspecified dementia, unspecified severity, without behavioral disturbance, psychotic disturbance, mood disturbance, and anxiety; S41.112A Laceration without foreign body of left upper arm, initial encounter; W45.8XXA Other foreign body or object entering through skin, initial encounter ==